=== PATIENT | female | born 1945 | race Caucasian/White ===

== ENCOUNTER 2023-09-30 22:58 | Inpatient (IN) | payer MEDICARE, SELFPAY ==
--- NOTE | ~2023-09-30 | CT_ITS ---
EXAMINATION: CT CERVICAL SPINE WITHOUT CONTRAST CLINICAL INFORMATION: Fall. Vomiting. COMPARISON: None available. TECHNIQUE: Axial images through the cervical spine without contrast. Sagittal and coronal reconstructions obtained. This CT examination was performed using dose optimization techniques as appropriate, variously including the following: *Automated exposure control *Adjustment of mA and/or kV according to patient size (this includes techniques or standardized protocols for targeted exams where dose is matched to indication/reason for exam; i.e. extremities or head) *Use of iterative reconstruction technique DLP: 337 mGy-cm FINDINGS: Head tilt to the left. Curvature of the lower cervical and upper thoracic spine to the left. Increased cervical kyphosis. Surgical hardware from ACDF at C6-C7. No fracture or dislocation. Bony ankylosis at C4-C5 and C5-C6. Fusion hardware at C6-C7. Degenerative disc space narrowing at C2-C3 C3-C4 and C7-T1. Degenerative changes at the C1 dens articulation with marked cystic changes of the dens. Prevertebral soft tissues are normal. Visualized lung apices are clear. CT/CT cervical spine wo IV con IMPRESSION: No fracture or dislocation. Postsurgical changes at C6-C7 and multilevel degenerative changes. Increased cervical kyphosis and cervical thoracic scoliosis. Fleischner guidelines were followed.
--- NOTE | ~2023-09-30 | CT_ITS ---
EXAMINATION: CT HEAD WITHOUT CONTRAST CLINICAL INFORMATION: Fall. Vomiting. COMPARISON: None available. TECHNIQUE: Contiguous axial imaging was performed from the skull base to vertex without intravenous administration of contrast. This CT examination was performed using dose optimization techniques as appropriate, variously including the following: *Automated exposure control *Adjustment of mA and/or kV according to patient size (this includes techniques or standardized protocols for targeted exams where dose is matched to indication/reason for exam; i.e. extremities or head) *Use of iterative reconstruction technique DLP: 704 mGy-cm FINDINGS: There is no evidence for an extra-axial collection. There is no evidence for intra-or extra-axial hemorrhage. The ventricles and extra-axial CSF spaces are fairly prominent suggestive of mild generalized atrophy. There is nonspecific periventricular white matter disease.. No mass, mass effect or infarct is seen. No skull fracture. Degenerative changes at the temporomandibular joints. Visualized paranasal sinuses, mastoid air cells and middle ears are clear. CT/CT head/brain wo IV con IMPRESSION: No acute findings.
[2023-09-30 23:06] VITALS: BP 90/62; PULSE 65; RESP 18; TEMP 36.4; O2SAT 97; BMI 26.3
--- NOTE | 2023-09-30 23:30 | PC.NURSE ---
pt reports taking trazadone shortly after a glass of wine. says she does not do that often. went to bathroom to vomit. felt dizzy in the bathroom, fell between wall and toilet. +LOC, unsure down time, thinks she hit her head but unsure. denies pain. c/o n/v and tiredness.
[2023-09-30 23:33] VITALS: BP 119/58; PULSE 71; RESP 18; TEMP 36.4; O2SAT 98
[2023-10-01] VITALS (14 sets, daily range): BP systolic 112–145; BP diastolic 55–86; PULSE 74–99; RESP 16–19; TEMP 36.4–36.9; O2SAT 93–96; BMI 28.4
--- NOTE | 2023-10-01 00:05 | ED.FALL ---
HPI - Fall General Chief Complaint: Fall Stated Complaint: fell, hit head, vomiting Time Seen by Provider: 09/30/23 23:41 Source: patient and family Mode of arrival: ambulatory Limitations: no limitations History of Present Illness ED Provider: Dr. Paola Leon HPI Narrative: patient comes to the emergency room accompanied by her family. Earlier today, patient has sustained a fall. Patient states that she is visiting from [place]. This is a big graduation week for the family. Patient states that earlier today, she celebrate with a coin of glass. 1/2 hour later, patient took a tablet of trazodone hoping that she would sleep well. Patient states that she got up, went to the bathroom, became drowsy and fell. Patient states that she vomited a few times. Believes she lost consciousness. Patient does not take any blood thinners. Patient states that when she woke up, there was vomit on the floor, no blood. Patient was a bit confused, no headache, no neck pain. Patient was assisted to stand up. Patient denies any pain anywhere. Patient states that she feels nauseous below was feels well. Related Data Allergies Allergy/AdvReac Type Severity Reaction Status Date / Time codeine Allergy Nausea and Verified 09/30/23 23:10 Vomiting Review of Systems Review of Systems: Constitutional : No Weight loss, No Fever, No Chills, No Night Sweats, No Fatigue, No Malaise ENT/Mouth : No Hearing loss, No Ear Pain, No Nasal Congestion, No Sinus Pain, No Hoarseness, No sore throat, No Rhinorrhea, No Swallowing Difficulty Eyes: No Eye Pain, No Swelling, No Redness, No Foreign Body, No Discharge, No Vision Changes Cardiovascular : No Chest Pain, No SOB, No Dyspnea on Exertion, No Orthopnea, No Edema, No Palpitations Respiratory : No Cough, No Sputum, No Wheezing, No Smoke Exposure, No Dyspnea Gastrointestinal : Complaining of Nausea, No Vomiting, No Diarrhea, No Constipation, No abdominal Pain, No Hematochezia, No Melena Genitourinary : no irregular bleeding, No Dysuria, No Urinary Frequency, No Hematuria, No Urinary Incontinence, No Urgency, No Flank Pain, No Urinary Flow Changes, No Hesitancy Musculoskeletal : No joint pain, No Myalgias, No Joint Swelling Skin : No Skin Lesions, No rash Neuro : No Weakness, No Numbness, No Paresthesias, No Loss of Consciousness, No Dizziness, No Headache Psych : No Anxiety/Panic, No Depression, No SI/HI/AH/VH, No Social Issues, Heme/Lymph: No Bruising, No Bleeding,No Lymphadenopathy Endocrine : No Polyuria, No Polydipsia, No Temperature Intolerance [facility], [facility] Past Medical History Medical History (Updated 10/01/23 @ 02:16 by Paola Leon MD) COPD (chronic obstructive pulmonary disease) Social History Social History Alcohol intake: current Alcohol intake frequency: 0-2 drinks per day Alcohol type: wine Smoked in Last 30 Days: No Use of substances other than those prescribed or required for medical reasons: Yes Substance Use Type: Marijuana Substance Use Frequency: Occasionally Last Used Substance: Weeks (ago) Advance Directives: Yes Advance Directives Information Provided: No Advance Directives on File: No Do you have a plan to hurt others: No Plan Physical Exam Vital Signs: Vital Signs: Last Vital Signs Temp 97.6 F 09/30/23 23:33 Pulse 81 10/01/23 00:35 Resp 18 09/30/23 23:33 BP 128/86 10/01/23 00:35 Pulse Ox 98 09/30/23 23:33 O2 Del Method Room Air 09/30/23 23:33 BMI result Body Mass Index 26.3 Const: Other: Appearance: Alert. Oriented X3. No acute distress. Eyes: Pupils equal, round and reactive to light. ENT: Pharynx normal. Neck: Normal inspection. Neck supple. No lymph nodes noted. No crepitus CVS: Normal heart rate and rhythm. Pulses normal. Normal S1 and S2 Respiratory: No respiratory distress. Breath sounds normal. No Wheezing. No rales Abdomen: Soft and nontender. No rigidity. No distention. Skin: Skin warm and dry. Normal skin color. Normal skin turgor. Extremities: No lower extremity edema. No Lacerations. No Rash Neuro: Oriented X 3. No motor deficit. No sensory deficit. Moving all extremities. No slurred speech. CN 2 through 12 grossly intact Psych: calm, cooperative, normal affect Course Course Course Narrative: - patient's labs pending - CT scan pending - I was informed by the patient's nurse that the patient had been vomiting, blood pressure was in the low 90s, patient received a L of normal saline. Medications Administered Discontinued Medications Generic Name Dose Route Start Last Admin Trade Name Nazanin PRN Reason Stop Dose Admin Sodium Chloride 1,000 mls @ 999 mls/hr 10/01/23 00:03 10/01/23 00:33 Ns IVCONT 10/01/23 01:03 999 mls/hr .Q1H1M ONE Administration Ondansetron HCl 4 mg 10/01/23 00:03 10/01/23 00:33 Ondansetron Hcl 4 Mg/2 Ml Vial IVPUSH 10/01/23 00:04 4 mg ONCE ONE Administration Medical Decision Making Medical Decision Making [facility] Narrative: my interpretation of CT scan: No obvious intracranial abnormality or bleeding. - patient's white blood cell count 11.8, likely secondary to reactive leukocytosis. Patient's chemistry shows a sodium of 127. I discussed this level with the patient, patient states that she has never been told that her sodium is low. - I discussed the patient with Dr. Wilson. There are several reasons why patient may be hyponatremic including some of her Home medications, vomiting? - sodium osmolality tests pending. - Patient is awake, alert and oriented x3. Patient's blood pressure 128/86, heart rate 81, oxygen saturation 98% on room air. - patient being admitted Differential Diagnosis Differential Diagnoses: The differential diagnosis associated with the presentation includes ( as above) Admission/Observation Consideration of admission/observation: Escalation of care including admission/observation considered Consult Healthcare Provider Management of the patient was discussed with: Hospitalist Lab Data [facility] Lab Attestation statement: I reviewed the patient's lab results. 10/01/23 00:24 10/01/23 00:24 Labs: Lab Results 10/01/23 10/01/23 Range/Units 00:24 00:24 WBC 11.8 H (4.8-10.8) X10*3/uL RBC 4.03 L (4.20-5.50) X10*6/uL Hgb 13.0 (12.0-16.0) g/dl Hct 35.9 L (37.0-47.0) % MCV 89.1 (80.0-98.0) fL MCH 32.3 (27.0-33.0) pg MCHC 36.2 H (31.0-35.0) g/dl RDW 12.5 (11.0-16.0) % Plt Count 324 (160-400) X10*3/uL MPV 9.4 (9.4-12.3) fL Immature Gran % (Auto) 0.5 H (0.0-0.4) % Neut % (Auto) 71.7 (45-73) % Lymph % (Auto) 15.8 L (20-40) % [place] % (Auto) 9.1 (2-11) % Eos % (Auto) 2.2 (0-4) % Baso % (Auto) 0.7 (0-2) % Lymph # (Auto) 1.9 (1.2-4.9) X10*3/uL [place] # (Auto) 1.1 (0.1-1.2) X10*3/uL Eos # (Auto) 0.3 (0.0-0.4) X10*3/uL Baso # (Auto) 0.1 (0.0-0.2) X10*3/uL Abs Immat Gran (auto) 0.06 H (0.00-0.03) X10*3/uL Absolute Neuts (auto) 8.4 H (2.0-8.3) x10*3/uL Absolute Nucleated RBC 0.000 (0.0-0.012) X10*3/uL Nucleated RBC % (auto) 0.0 (0.0-0.2) /100WBC Sodium 127 L (135-145) mmol/L Potassium 3.7 (3.3-5.1) mmol/L Chloride 93 L (96-108) mmol/L Carbon Dioxide 22 (22-29) mmol/L Anion Gap 16 (12-20) BUN 6 L (9-16) mg/dL Creatinine 0.62 (0.5-1.4) mg/dL Estim Creat Clear Calc 63.1 Estimated GFR > 60 Random Glucose 109 (60-115) mg/dL Calcium 9.2 (8.4-10.2) mg/dL Total Bilirubin 0.4 (0.0-1.0) mg/dL AST 33 H (5-31) U/L ALT 15 (0-31) U/L Alkaline Phosphatase 77 (39-117) U/L Troponin I High Sens < 2.7 (<3.5-17.0) ng/L Total Protein 7.5 (6.5-8.0) g/dL Albumin 4.0 (3.5-5.0) g/dL Ethyl Alcohol < 10 Cancelled mg/dL Independent Interpretation I performed an independent interpretation of an: CT Scan Radiology Impression Discussion of test interpretation with radiology: I have reviewed the radiologist's reading. Radiologist Impression: FINDINGS: There is no evidence for an extra-axial collection. There is no evidence for intra-or extra-axial hemorrhage. The ventricles and extra-axial CSF spaces are fairly prominent suggestive of mild generalized atrophy. There is nonspecific periventricular white matter disease.. No mass, mass effect or infarct is seen. No skull fracture. Degenerative changes at the temporomandibular joints. Visualized paranasal sinuses, mastoid air cells and middle ears are clear. CT/CT head/brain wo IV con IMPRESSION: No acute findings. IMPRESSION: No fracture or dislocation. Postsurgical changes at C6-C7 and multilevel degenerative changes. Increased cervical kyphosis and cervical thoracic scoliosis. Fleischner guidelines were followed Independent Historian Clinical information obtained from an independent historian. History obtained from or confirmed by: Other ( family) Critical Care Time Critical Care Time Critical Care Time: Yes Total Critical Care Time: 60 Attestation: I have personally provided critical care time. Time includes review of lab data, radiology results, discussion with consultants, and monitoring for potential decompensation. Intervention performed as documented. Discharge Plan Discharge Clinical Impression: Dizziness, Acute hyponatremia, Nausea & vomiting Patient Disposition: Admitted As Inpatient Print Language: Mexican
[2023-10-01 00:28] LABS: MANUAL DIFF FLAG NO
[2023-10-01 00:33] LABS: Basophils Absolute Auto 0.1 X10*3/uL (0.0-0.2); Basophils Percent Auto 0.7 % (0-2); Eosinophils Absolute Auto 0.3 X10*3/uL (0.0-0.4); Eosinophils Percent Auto 2.2 % (0-4); Hematocrit 35.9 % (37.0-47.0); Imm Gran Abs Auto 0.06 X10*3/uL (0.00-0.03); Imm Gran Pct Auto 0.5 % (0.0-0.4); Lymphocytes Absolute Auto 1.9 X10*3/uL (1.2-4.9); Lymphocytes Percent Auto 15.8 % (20-40); Mean Corpuscular HGB Conc 36.2 g/dl (31.0-35.0); Mean Corpuscular Hemoglobin 32.3 pg (27.0-33.0); Mean Corpuscular Volume 89.1 fL (80.0-98.0); Mean Platelet Volume 9.4 fL (9.4-12.3); Monocytes Absolute Auto 1.1 X10*3/uL (0.1-1.2); Monocytes Percent Auto 9.1 % (2-11); Neutrophils Absolute Auto 8.4 x10*3/uL (2.0-8.3); Neutrophils Percent Auto 71.7 % (45-73); Platelet Count 324 X10*3/uL (160-400); Red Blood Count 4.03 X10*6/uL (4.20-5.50); Red Cell Distribution Width 12.5 % (11.0-16.0); White Blood Count 11.8 X10*3/uL (4.8-10.8)
[2023-10-01] MEDS: 0.9 % Sodium Chloride 1,000 ML 999 ML IVCONT (00:33)
[2023-10-01] MEDS: ondansetron HCL 4 MG/2 ML VIAL IVPUSH (00:33)
[2023-10-01 00:48] LABS: Alanine Aminotransferase 15 U/L (0-31); Alkaline Phosphatase 77 U/L (39-117); Anion Gap 16 (12-20); Aspartate Amino Transferase 33 U/L (5-31); Bilirubin Total 0.4 mg/dL (0.0-1.0); Blood Urea Nitrogen 6 mg/dL (9-16); Calcium 9.2 mg/dL (8.4-10.2); Carbon Dioxide 22 mmol/L (22-29); Chloride 93 mmol/L (96-108); Creatinine Clr Calc Pharmacy 63.1; Estimated Glomerular Filt Rate > 60; Ethanol < 10 mg/dL; Glucose Random 109 mg/dL (60-115); Potassium 3.7 mmol/L (3.3-5.1); Sodium 127 mmol/L (135-145); Total Protein 7.5 g/dL (6.5-8.0)
[2023-10-01 01:02] LABS: Troponin-I High Sensitivity < 2.7 ng/L (<3.5-17.0)
--- NOTE | 2023-10-01 02:25 | PM.IMHP ---
History of Present Illness Date of Service: 10/01/23 Attending physician on admission: Debra Oliveira Chief Complaint: Fall, nausea and vomiting Autumn Burleson is a 74 years old woman with past medical history significant for essential hypertension and hyperlipidemia was brought to the emergency department after she sustained a fall tonight. She stated that last night around 20:00 she drank a glass of wine in around an hour later she took trazodone 100 mg p.o. but she was unable to sleep. Minutes later she started to experience nausea and dizziness. While walking to the bathroom she fall sustaining head trauma. She does not remember losing consciousness and she was found by her who told her that she was a little bit incontinent of stools only. No seizure activity was noted by . Patient denied any headache, acute visual disturbances, fever, chills or palpitations. She also denied any focal weakness. Denied any acute cardiopulmonary or other gastrointestinal symptoms. She denied tobacco smoking and denied marijuana use. She drinks a glass of wine very occasionally. One of the medications she is uses for hypertension is hydrochlorothiazide. Patient did not report history of low-sodium issues. In the ED, she was found to have mild leukocytosis of 11.8. Hemoglobin and platelets are normal. Sodium is 127 and chloride 93. Other electrolytes are normal. Troponin is < 2.7 and AST slightly elevated at 33. Bilirubin, AST and alk-phos are normal. Ethanol level < 10. Urine osmolality, serum osmolality urine sodium are not available Head and C-spine CT scan showed no acute findings. ED tx: NS 1 L bolus and Zofran 4 mg IV Review of Systems Review of Systems: All 12 systems were reviewed and normal except as noted in HPI. [facility] Medical History (Updated 10/01/23 @ 05:24 by Debra Oliveira MD) COPD (chronic obstructive pulmonary disease) Social History Alcohol intake: current Alcohol intake frequency: 0-2 drinks per day Alcohol type: wine Patient Tobacco Use Status: Former Tobacco user Substance Use Type: Marijuana Meds Allergies Allergy/AdvReac Type Severity Reaction Status Date / Time codeine Allergy Nausea and Verified 09/30/23 23:10 Vomiting Home Medications ?Medication ?Instructions ?Recorded ?Confirmed ?Last Taken ?Type amlodipine 2.5 mg tablet 2.5 mg PO DAILY 10/01/23 10/01/23 Unknown History atorvastatin 10 mg tablet 10 mg PO DAILY 10/01/23 10/01/23 Unknown History hydrochlorothiazide 12.5 mg tablet 12.5 mg PO DAILY 10/01/23 10/01/23 Unknown History ibuprofen 800 mg tablet 800 mg PO Q8H PRN pain 10/01/23 10/01/23 Unknown History levothyroxine 88 mcg tablet 88 mcg PO DAILY 10/01/23 10/01/23 Unknown History lorazepam 0.5 mg tablet 0.5 mg PO DAILY 10/01/23 10/01/23 Unknown History losartan 100 mg tablet 100 mg PO DAILY 10/01/23 10/01/23 Unknown History potassium chloride 10 mEq 10 meq PO DAILY 10/01/23 10/01/23 Unknown History tablet,extended release trazodone 100 mg tablet 100 mg PO BEDTIME 10/01/23 10/01/23 Unknown History Physical Exam Vital Signs and Narrative: Vital Signs: Last Vital Signs Temp 97.6 F 09/30/23 23:33 Pulse 81 10/01/23 00:35 Resp 18 09/30/23 23:33 BP 128/86 10/01/23 00:35 Pulse Ox 98 09/30/23 23:33 O2 Del Method Room Air 09/30/23 23:33 BMI result Body Mass Index 26.3 Constitutional - Awake and Alert, No apparent distress HEENT - Pupils equally round, EOMI Heart - S1S2, RRR. No murmurs. Respiratory - Normal lung expansion, Normal respiratory effort, No respiratory distress, CTA bilaterally Gastrointestinal - NT / ND; +BS; No rebound or guarding Extremities - no calf tenderness bilaterally, no swelling Musculoskeletal - Normal inspection, normal ROM Skin - Warm/Dry Neurological - Alert & oriented x3. No focal weakness. Normal speech. Psychological - Appropriate affect Results Labs 10/01/23 00:24 10/01/23 03:34 Labs: Laboratory Results - last 24 hr 10/01/23 10/01/23 00:24 00:24 MCV 89.1 MCH 32.3 MCHC 36.2 H RDW 12.5 Plt Count 324 MPV 9.4 Immature Gran % (Auto) 0.5 H Neut % (Auto) 71.7 Lymph % (Auto) 15.8 L [place] % (Auto) 9.1 Eos % (Auto) 2.2 Baso % (Auto) 0.7 Lymph # (Auto) 1.9 [place] # (Auto) 1.1 Eos # (Auto) 0.3 Baso # (Auto) 0.1 Abs Immat Gran (auto) 0.06 H Absolute Neuts (auto) 8.4 H Absolute Nucleated RBC 0.000 Nucleated RBC % (auto) 0.0 Anion Gap 16 Estim Creat Clear Calc 63.1 Estimated GFR > 60 Random Glucose 109 Calcium 9.2 Total Bilirubin 0.4 AST 33 H ALT 15 Alkaline Phosphatase 77 Troponin I High Sens < 2.7 Total Protein 7.5 Albumin 4.0 Ethyl Alcohol < 10 Cancelled Imaging Radiologist's Impressions: Impressions Cervical Spine CT 09/30/23 23:29 IMPRESSION: No fracture or dislocation. Postsurgical changes at C6-C7 and multilevel degenerative changes. Increased cervical kyphosis and cervical thoracic scoliosis. Fleischner guidelines were followed. Head CT 09/30/23 23:29 IMPRESSION: No acute findings. Assessment and Plan (1) Nausea & vomiting: Qualifiers: Vomiting type: unspecified Qualified Code(s): R11.2 - Nausea with vomiting, unspecified Status: Acute (2) Hyponatremia: Status: Acute Plan Autumn Burleson is a 74 y/o woman admitted with: Hyponatremia, moderate, unknown if acute or chronic. Patient is asymptomatic. Patient is hypovolemic. Likely multifactorial: HCTZ induced in combination with recent ingestion alcohol and trazodone intake simultaneously. Hold HCTZ and trazodone. Na+ osm is 291, urine Na+ 34. Serum osm is still pending. Received 1 L bolus of NS in ED. Continue IVFs. Monitor Na+ every 4 hr. Check TSH. Nausea and vomiting possible secondary to use of trazodone and alcohol and/or due to above. Antiemetic therapy as needed. Patient was advised to avoid taking sedatives such as trazodone and lorazepam with alcohol. s/p Fall. Likely secondary to orthostatic hypotension secondary to volume depletion. Encourage oral hydration. Fall precautions. Monitor orthostatic vital signs. Patient was advised to avoid getting out of the bed without assistance. Syncope likely secondary to orthostasis resulting head trauma. Received IVFs. Head CT scan is negative. Fall precautions Essential hypertension. HCTZ on hold due to above. Continue losartan. Hyperlipidemia. Continue statin. Hypothyroidism. Continue levothyroxine. Code status: Full DVT prophylaxis: SCDs Patient will need hospitalization for at least 2 midnights for hyponatremia management and treatment. She will need IV fluids close monitoring of vital signs and sodium level. Quality Stroke Does the patient have a stroke diagnosis?: No VTE Prior VTE?: No VTE Risk Level:: Medical - moderate - high VTE Device Contraindication: N/A - Device Ordered VTE Drug Contraindication: Treatment Not Indicated
[2023-10-01 03:51] LABS: Sodium 128 mmol/L (135-145)
--- NOTE | 2023-10-01 04:22 | PC.NURSE ---
pt resting comfortably with family at bedside. Med Rec completed, pt aware of everything she takes
[2023-10-01 04:25] LABS: Appearance Urine Clear; Color Urine Yellow; Glucose Urine UA Negative (Negative); Leukocyte Esterase Urine Moderate (2+) (Negative); Nitrite Urine Negative (Negative); UMIC TRIGGER UACC YES; Urine Blood Negative (Negative); Urine Ketones 15 mg/dL (Negative); Urine Protein Negative (Neg-Trace)
[2023-10-01 04:33] LABS: Osmolality Urine 291 mosm/kg (373-1093)
[2023-10-01 04:35] LABS: Bacteria Urine None Seen (None Seen); RBC Urine 0-2 /HPF (0-2); Squamous Epithelial Cell Urine 0-2 /HPF (0-2); UACC Culture Trigger YES; WBC Urine 21-50 /HPF (0-5)
[2023-10-01 04:35] LABS: Thyroid Stimulating Hormone 0.62 uIU/mL (0.32-4.0)
[2023-10-01] MEDS: 0.9 % Sodium Chloride 1,000 ML 80 ML IVCONT (05:28)
[2023-10-01] MEDS: Levothyroxine Sodium 88 MCG TABLET PO (06:30)
[2023-10-01 07:41] LABS: Sodium 128 mmol/L (135-145)
[2023-10-01 08:00] LABS: Osmolality, Serum 264 mosm/kg (281-305)
--- NOTE | 2023-10-01 09:41 | PHA.MEDREC ---
Pharmacy Consult ? Medication Reconciliation Pharmacy has completed the medication reconciliation. patient states she is taking combivent prn and anoro ellipta daily.
[2023-10-01] MEDS: Atorvastatin Calcium 10 MG TABLET PO (10:15)
[2023-10-01] MEDS: Potassium Chloride ER 10 MEQ TABLET.ER PO (10:15)
--- NOTE | 2023-10-01 11:32 | MHC.CM.PN ---
IMM 10/01/23 Female 78 DX Hyponatremia She lives in [place] with her spouse. She is independent with all functional mobility. She is in [place] for 3 of her grandchildren's graduations. DP Home self care. Her spouse will provide transportation home at discharge. PCP [facility] Vazquez [place]. A task has been sent to update EMR. A copy of her HCP has been requested.
[2023-10-01 11:33] LABS: Sodium 131 mmol/L (135-145)
--- NOTE | 2023-10-01 14:11 | P.EN_ITS ---
Event Note Date of Service: 10/01/23 Event Note: This patient is seen and examined by hospitalist team this morning,seen and exmained again Patient seems to be improving denies any vomiting or dizziness. Has some nausea Orthosis in negative Physical exam : similar to h&P. assessment and plan coordinated in APCs note, Agree with the plan in addition: Nausea vomiting , dizziness thought to be related to trazodone/alcohol use-which seems to be improved significantly, patient still feels generalized weak and bl ood pressure is borderline. Hyponatremia-sodium still in 128 range will continue to monitor, still fluid, serum osmolarity and urine osmolality both low, urine sodium 34. Encouraged for p.o. intake, monitor electrolytes closely. pt eval for generalised weak - Pt eval. Time Spent With Patient Time: Total time managing care of this patient today ____ minutes.
[2023-10-01 20:12] LABS: Sodium 133 mmol/L (135-145)
[2023-10-02] VITALS: BP 122/65; PULSE 84; RESP 20; TEMP 36.8; O2SAT 95
[2023-10-02 03:57] VITALS: BP 123/61; PULSE 70; RESP 20; TEMP 36.1; O2SAT 95
[2023-10-02] MEDS: Levothyroxine Sodium 88 MCG TABLET PO (05:06)
[2023-10-02] MEDS: 0.9 % Sodium Chloride Flush 3 ML SYRINGE IVFLUSH ×2 (05:07→08:35)
[2023-10-02 07:06] LABS: Anion Gap 10 (12-20); Blood Urea Nitrogen 4 mg/dL (9-16); Calcium 9.3 mg/dL (8.4-10.2); Carbon Dioxide 25 mmol/L (22-29); Chloride 102 mmol/L (96-108); Creatinine Clr Calc Pharmacy 71.1; Estimated Glomerular Filt Rate > 60; Glucose Random 117 mg/dL (60-115); Potassium 3.8 mmol/L (3.3-5.1); Sodium 133 mmol/L (135-145)
[2023-10-02 08:00] VITALS: BP 130/60; PULSE 72; RESP 20; TEMP 36.6; O2SAT 94
[2023-10-02 08:05] VITALS: BP 130/67; PULSE 73
[2023-10-02 08:10] VITALS: BP 152/70; PULSE 73
[2023-10-02] MEDS: Losartan Potassium 50 MG TABLET 100 MG PO (08:35)
[2023-10-02] MEDS: Atorvastatin Calcium 10 MG TABLET PO (08:35)
[2023-10-02] MEDS: Cholecalciferol (Vitamin D3) 25 MCG TABLET PO (08:35)
[2023-10-02] MEDS: Potassium Chloride ER 10 MEQ TABLET.ER PO (08:35)
[2023-10-02] MEDS: amLODIPine Besylate 2.5 MG TABLET PO (10:41)
[2023-10-02 11:00] VITALS: BP 152/70; PULSE 73
--- NOTE | 2023-10-02 11:25 | PM.DS ---
DS: Providers Provider Date of Service: 10/02/23 Date of admission: 10/01/23 02:24 Date of discharge: 10/02/23 Primary care physician: Unknown Physician Attending physician on discharge: Priti Cruz Discharging clinician: Priti Cruz DS: Diagnosis Discharge Diagnosis (1) Nausea & vomiting: Status: Acute (2) Hyponatremia: Status: Acute DS: Summary Hospital Course Hospital Course: 74 years old woman with past medical history significant for essential hypertension and hyperlipidemia was brought to the emergency department after she sustained a fall tonight. She stated that last night around 20:00 she drank a glass of wine in around an hour later she took trazodone 100 mg p.o. but she was unable to sleep. Minutes later she started to experience nausea and dizziness. While walking to the bathroom she fall sustaining head trauma. She does not remember losing consciousness and she was found by her who told her that she was a little bit incontinent of stools only. No seizure activity was noted by . Patient denied any headache, acute visual disturbances, fever, chills or palpitations. She also denied any focal weakness. Denied any acute cardiopulmonary or other gastrointestinal symptoms. She denied tobacco smoking and denied marijuana use. She drinks a glass of wine very occasionally. One of the medications she is uses for hypertension is hydrochlorothiazide. Patient did not report history of low-sodium issues. In the ED, she was found to have mild leukocytosis of 11.8. Hemoglobin and platelets are normal. Sodium is 127 and chloride 93. Other electrolytes are normal. Troponin is < 2.7 and AST slightly elevated at 33. Bilirubin, AST and alk-phos are normal. Ethanol level < 10. Urine osmolality, serum osmolality urine sodium are not available Head and C-spine CT scan showed no acute findings. ED tx: NS 1 L bolus and Zofran 4 mg IV. Hospital course: Patient came to the hospital because has nausea vomiting, fall after taking trazodone and wine, also had blood pressure fluctuation possibly also contributed, poor oral intake, also patient fall due to above- patient received fluid, trazodone discontinued, also advised strongly to not take wine with trazodone or lorazepam or any sedatives. Patient found to have mild leukocytosis, hyponatremia with sodium level of 127, CT head and CT cervical spine negative. Patient likely had acute hyponatremia: Hydrochlorothiazide discontinued and sodium monitored which improved. Monitor BMP in 1-2 week and further management out patiently . Hypertension: Fluctuating blood pressure: Hydrochlorothiazide discontinued, continue amlodipine and losartan for now, if blood pressure stays persistently in 140s then may need to adjust amlodipine dosing. Patient has asymptomatic pyuria, no bacteriuria: Patient is asymptomatic currently will defer antibiotic, urine culture mixed justin . plan: stopped trazodone , hold lorazepam for 5 days (avoid alcohol use). Encouraged for hydration. Hydrochlorothiazide stopped Due to hyponatremia, monitor BMP outpatient. blood pressure stays persistently in 140s then may need to adjust amlodipine dosing. Above management discussed with the patient in detail length she understand and in agreement with the above plan, time spent 40 minute Time Attestation Total time managing care of this patient today: 40 mintues. Discharge Coordination Time (in mins): 40 min Quality: Safe Use of Opioids Does Pt have an Active Cancer Diagnosis on the Problem List?: No Quality: Stroke Does the patient have a stroke diagnosis?: No Physical Exam Vital Signs: Vital Signs: Last Vital Signs Temp 97.8 F 10/02/23 08:00 Pulse 73 10/02/23 11:00 Resp 20 10/02/23 08:00 BP 152/70 H 10/02/23 11:00 Pulse Ox 94 10/02/23 08:00 O2 Del Method Room Air 10/02/23 08:00 BMI result Body Mass Index 28.4 Appearance: Alert.? Oriented X3.? cvs: rrr, [id number] . res: clear to auscultation ,no rhonchii or wheezing abd: no rebound or guarding ,nt, bs present. ext pulses present , no cyanosis . neuro: axo3 , nonfocal. DS: Data Data Completed and Pending Labs on day of discharge: Laboratory Results - last 24 hr 10/01/23 10/01/23 10/02/23 11:09 19:42 06:39 Hold Purple Top SEE NOTE Sodium 131 L 133 L 133 L Potassium 3.8 Chloride 102 Carbon Dioxide 25 Anion Gap 10 L BUN 4 L Creatinine 0.57 Estim Creat Clear Calc 71.1 Estimated GFR > 60 Random Glucose 117 H Calcium 9.3 Imaging Chest x-ray: Radiologist's impression: ITS Impressions Cervical Spine CT 09/30/23 23:29 IMPRESSION: No fracture or dislocation. Postsurgical changes at C6-C7 and multilevel degenerative changes. Increased cervical kyphosis and cervical thoracic scoliosis. Fleischner guidelines were followed. Head CT 09/30/23 23:29 IMPRESSION: No acute findings. Discharge Plan Discharge Anticipated Discharge Date/Time: 10/02/23 10:59 Patient Disposition: Home, Self-Care Discharge Diagnosis: acute hyponatremia, fall, htn,nausea /vomiting Referrals: Physician,Unknown J [Primary Care Provider] - 1 Week Discharge Medications: Continued atorvastatin 10 mg tablet 10 mg PO DAILY ibuprofen 800 mg tablet 800 mg PO Q8H PRN (Reason: pain) amlodipine 2.5 mg tablet 2.5 mg PO DAILY potassium chloride 10 mEq tablet extended release 10 meq PO DAILY levothyroxine 88 mcg tablet 88 mcg PO DAILY@0600 losartan 100 mg tablet 100 mg PO DAILY Anoro Ellipta 62.5-25 mcg/actuation blister with device 1 ea INHALATION DAILY cholecalciferol (vitamin D3) [Vitamin D3] 25 mcg (1,000 unit) Tablet 25 mcg PO DAILY Combivent Respimat 20-100 mcg/actuation mist 1 puff INHALATION QID PRN (Reason: Shortness Of Breath Or Wheezing) Held lorazepam 0.5 mg tablet 0.5 mg PO DAILY PRN (Reason: Anxiety) Hold Instructions: Resume on 10/07/23. Discontinued hydrochlorothiazide 12.5 mg tablet 12.5 mg PO DAILY trazodone 100 mg tablet 100 mg PO BEDTIME PRN (Reason: Sleep) Discharge Orders: Discharge Order (Routine); Ordered 10/02/23 Ordered By: Priti Cruz Diet: Advance to usual diet Activity on Discharge: As tolerated Stand Alone Forms: Patient Portal Discharge page Print Language: Macedonian Care Plan Goals: Patient came to the hospital because has nausea vomiting after taking trazodone and wine, also had blood pressure fluctuation possibly also contributed, poor oral intake, also patient fall due to above- patient received fluid, trazodone discontinued, also advised strongly to not take wine with trazodone or lorazepam or any sedatives. Patient likely had acute hyponatremia: Hydrochlorothiazide discontinued and sodium monitored which improved. Monitor BMP in 1-2 week and further management out patiently . Hypertension: Fluctuating blood pressure: Hydrochlorothiazide discontinued, continue amlodipine and losartan for now, if blood pressure stays persistently in 140s then may need to adjust amlodipine dosing. Above management discussed with the patient in detail length she understand and in agreement with the above plan, time spent 40 minute. Health Concerns: As above. Plan of Treatment: As above. Assessment: As above.
--- NOTE | 2023-10-02 11:41 | MHC.CM.PN ---
Pt is medically cleared for discharge home self-care, pts to transport her home.
== END 2023-10-02 12:48 | disposition home or self-care (01) | DRG 641 ==
LOC: HO.ED 10-01 02:16 → HO.EDOVER 10-01 02:27 → HO.IMC 10-01 05:10
PROVIDERS: Admitting Provider Internal Medicine; Emergency Provider Emergency Medicine; Visit Provider Internal Medicine
DX: E87.1 Hypo-osmolality and hyponatremia (principal); I95.1 Orthostatic hypotension; E78.5 Hyperlipidemia, unspecified; E03.9 Hypothyroidism, unspecified; I10 Essential (primary) hypertension; W19.XXXA Unspecified fall, initial encounter; Z79.890 Hormone replacement therapy; Z79.899 Other long term (current) drug therapy
CPT/HCPCS: 36415; 70450; 72125; 80048; 80053; 80307; 81001; 83930; 83935; 84295; 84300; 84443; 84484; 85025; 87086; 97161; 99285; J2405

== ENCOUNTER → 2023-10-01 02:24 | Outpatient (BNV) | payer MEDICARE, SELFPAY | PROVIDERS: Admitting Provider Internal Medicine; Emergency Provider Emergency Medicine; Visit Provider Internal Medicine | DX: R11.2 Nausea with vomiting, unspecified (principal); E87.1 Hypo-osmolality and hyponatremia | CPT/HCPCS: 99222; 99239; 99499 ==

== ENCOUNTER 2025-03-08 09:03 | Outpatient (AMB) | payer MEDICARE, SELFPAY ==
[2025-03-08 09:09] VITALS: BP 138/72; PULSE 84; O2SAT 79; BMI 26.7
--- NOTE | 2025-03-08 09:09 | A.OFFVIS_ITS ---
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 The patient is a 79 year woman who recently moved from [place] to [place]. Now she is getting situated. She does have a history of COPD and also pulmonary fibrosis. The patient has been on Anoro inhaler. In addition to the Combivent. She developed significant shortness of breath with activity. She has been having issues with her swallow. She is also having issues with chronic bronchitis moderate severity. Difficult to expectorate. In addition to that she had been having significant neck pain when she did have surgery at some point in the past. She did undergo a CT scan of the neck which I personally reviewed here actually at [place]. The lung windows on the CT scan of the neck demonstrates some emphysema. In addition to that the trachea appeared to have near-complete collapse suggesting significant localized proximal tracheomalacia. Likely contributing to her chronic bronchitis and chronic cough. During the visit we did go for brief walking oximetry the patient did desaturate down to 87% with activity. She was visibly dyspneic with a dyspnea score of 6/10. The patient is placed on a portable oxygen concentrator at 2 L and then up to 3 L to maintain a pulse ox of 93% with activity. Will go ahead and set her up with oxygen at this time. She will get is going to continue inhaler therapy. And will going to do additional testing including PFTs CT scan of the chest and also a barium swallow. Also of interest the patient does have a sister with pulmonary fibrosis I do not have the details. [facility] Medical History (Updated 03/08/25 @ 17:36 by Matt Wells MD) Tracheomalacia Dysphagia Pulmonary fibrosis Chronic respiratory failure with hypoxia COPD (chronic obstructive pulmonary disease) Social History Household Members: Spouse Housing: House Do you presently have visiting nurse or other home services: No Alcohol intake: current Alcohol intake frequency: 0-2 drinks per day Alcohol type: wine Patient Tobacco Use Status: Former Tobacco user Substance Use Type: Marijuana Advance Directives Date on File: 10/01/23 service: No Review of Systems Const Denies fever(s) Eyes Reports no additional complaints ENT Reports dysphagia and Reports nasal congestion Card Denies chest pain and Reports dyspnea on exertion Resp Reports chest congestion, Reports cough, Reports dyspnea on exertion and Denies wheezing GI Reports dysphagia Musc Reports myalgias Skin/Breast Denies rash Neuro Reports no additional complaints Endo Reports no additional complaints Cy/Lymph Reports no additional complaints Aller/Immun Denies wheezing Physical Exam Vital Signs: Last Vital Signs Pulse 84 03/08/25 09:09 BP 138/72 03/08/25 09:09 Pulse Ox 79 L 03/08/25 09:09 Oxygen Delivery Method Room Air 03/08/25 09:09 BMI result Body Mass Index 26.7 Const General: comfortable HEENT Head: Yes normocephalic Neck Neck: Yes supple Chest Chest palpation & inspection: normal inspection of the chest Resp Effort & Inspection: normal respiratory effort Auscultation: diminished lung sounds Cardio Heart sounds: S1 normal heart sound present and S2 normal heart sound present GI Palpation (GI): Soft to palpation Skin General skin exam: no rashes or lesions noted Extrem General: Yes no clubbing, cyanosis or edema Results Reviewed Results Reviewed: Assessment & Plan Assessment & Plan (1) COPD (chronic obstructive pulmonary disease): Code(s): J44.9 - Chronic obstructive pulmonary disease, unspecified Category: Medical Qualifiers: COPD type: emphysema Emphysema type: centrilobular Qualified Code(s): J43.2 - Centrilobular emphysema (2) Chronic respiratory failure with hypoxia: Code(s): J96.11 - Chronic respiratory failure with hypoxia Category: Medical (3) Pulmonary fibrosis: Code(s): J84.10 - Pulmonary fibrosis, unspecified Category: Medical (4) Dysphagia: Code(s): R13.10 - Dysphagia, unspecified Category: Medical Qualifiers: Dysphagia type: unspecified Qualified Code(s): R13.10 - Dysphagia, unspecified (5) Tracheomalacia: Code(s): J39.8 - Other specified diseases of upper respiratory tract Category: Medical Plan continue Anoro ANMOL as needed start Oxygen 3L/pulse with activity Overnight oximetry on RA CT chest PFTs Barium swallow consider bloodwork start acapella valve for CPT F/U 2-3 months Orders: Orders 2 Overnight Pulse Oximetry Today J44.9 - Chronic obstructive pulmonary disease, unspecified, J84.10 - Pulmonary fibrosis, unspecified, J96.11 - Chronic respiratory failure with hypoxia, R13.10 - Dysphagia, unspecified PFT pulmonary function test Today J44.9 - Chronic obstructive pulmonary disease, unspecified, J84.10 - Pulmonary fibrosis, unspecified, J96.11 - Chronic respiratory failure with hypoxia, R13.10 - Dysphagia, unspecified [place] barium swallow Today J44.9 - Chronic obstructive pulmonary disease, unspecified, J84.10 - Pulmonary fibrosis, unspecified, J96.11 - Chronic respiratory failure with hypoxia, K21.9 - Gastro-esophageal reflux disease without esophagitis, R13.10 - Dysphagia, unspecified CT chest wo IV con Today J44.9 - Chronic obstructive pulmonary disease, unspecified, J84.10 - Pulmonary fibrosis, unspecified, J96.11 - Chronic respiratory failure with hypoxia, R13.10 - Dysphagia, unspecified Coding Level of Care Code New Pt Level 5 (75063) Diagnoses Centrilobular emphysema J43.2 COPD type: emphysema Emphysema type: centrilobular Chronic respiratory failure with hypoxia J96.11 Pulmonary fibrosis J84.10 Dysphagia, unspecified type R13.10 Dysphagia type: unspecified Tracheomalacia J39.8 Time Spent (min) 60
--- OUTSIDE RECORDS SUMMARY | 2025-03-08 09:39 | XMS_ITS | Encounter Summary ---
Author Organization [facility] Address [address] [place] [address] Care Team Providers Care Coil Winder Strap Name Role Phone Reagan Vazquez MD Unavailable [phone] Reagan Vazquez MD Primary Care Provider [phone] Bessy Stephens Unavailable Unavailabl e Reagan Vazquez MD Unavailable Karen Richardson RN Unavailable Unavaila ble Reagan Vazquez MD Unavailable Reagan Vazquez MD Unavailable Reagan Vazquez MD Unavailable Lian Fuller Unavailable Unavailabl e Source Comments Please be aware that You and/or your organization are solely responsible for the use, security, privacy, and any decisions made with any information you receive from [email or web address] Reason for Visit * Reason Onset Date Comments Med Refill Dermatology Appt 01/29/2023 Provided [facility] appointment March 10 @ 10:15 AM Encounter Details Date Type Department Care Team (Late st Contact Info) Description 01/29/2023 Refill [facility] [place] [address] [address] Reagan Vazquez MD [address] [place] [address] Anxiety Social History Tobacco Use Types Packs/Day Years Used Date Smoking Tobacco: Former Cigarettes 0.5 10 0 07/10/1966 - 06/17/1976 Passive Smoke Exposure: Past Smokeless Tobacco: Never Alcohol Use Standard Drinks/Week Comments Yes 4 (1 standard drink = 0.6 oz pur e alcohol) Humiliation, Afraid, Rape, and Kick questionnair e Answer Date Recorded Within the last year, have y ou been afraid of your partner or ex-partner? No 01/09/2023 Within the last year, have y ou been humiliated or emotionally abused in other ways by your partner or ex-partner? No Within the last year, have y ou been kicked, hit, slapped, or otherwise physically hurt by your partner or ex-partner? No 01/09/2023 Within the last year, have y ou been raped or forced to have any kind of sexual activity by your partner or ex-partner? No 01/09/2023 Social Connection and Isolation Panel Answer Date Recorded In a typical week, how many times do you talk on the phone with family, friends, or neighbors? More than three times a week 01/09/2023 How often do you get togethe r with friends or relatives? More than three times a week 01/09/2023 How often do you attend [facility] or cheondoism services? More than 4 times per year 01/09/2023 Do you belong to any clubs o r organizations such as hoahaoism groups, unions, fraternal or athletic groups, or school groups? No 01/09/2023 How often do you attend meet ings of the clubs or organizations you belong to? Never 01/09/2023 Are you , , di vorced, , never , or living with a partner? 01/09/2023 AUDIT-C Answer Date Recorded Q1: How often do you have a drink containing alc ohol? Monthly or less 01/09/2023 Q2: How many drinks containi ng alcohol do you have on a typical day when you are drinking? 1 or 2 01/09/2023 Q3: How often do you have si x or more drinks on one occasion? Less than monthly 01/09/2023 Overall Financial Resource Strain (CARDIA) Answe r Date Recorded How hard is it for you to pa y for the very basics like food, housing, medical care, and heating? Not very hard 01/09/2023 PHQ-2 Answer Date Recorded Patient Health Questionnaire-2 Score 0 01/29/2023 [facility] Occupat ional [facility] - Occupational Stress Questionnaire Answer Date Recorded Do you feel stress - tense, restless, nervous, or anxious, or unable to sleep at night because your mind is troubled all the time - these days? Not at all 01/09/2023 Physical Activity Answer Date Recorded On average, how many days pe r week do you engage in moderate to strenuous exercise (like a brisk walk)? 0 days 01/09/2023 On average, how many minutes do you engage in exercise at this level? 0 min 01/09/2023 Food Insecurity Answer Date Recorded Within the past 12 months, y ou worried that your food would run out before you got the money to buy more. 1 01/09/2023 Within the past 12 months, t he food you bought just didn't last and you didn't have money to get more. 1 01/09/2023 Transportation Needs Answer Date Record ed In the past 12 months, has l ack of transportation kept you from medical appointments or from getting medications? 2 01/02 In the past 12 months, has l ack of transportation kept you from meetings, work, or from getting things needed for daily living? 2 01/14/2023 Housing Stability Answer Date Recorded In the last 12 months, was t here a time when you were not able to pay the mortgage or rent on time? 2 01/09/2023 In the last 12 months, how many places have you lived? 1 01/09/2023 In the last 12 months, was t here a time when you did not have a steady place to sleep or slept in a alf (including now)? 2 01/09/2023 Comments No Sex and Gender Information Value Date Recorded Sex Assigned at Not on file Legal Sex Female 11:34 AM EDT Gender Identity Not on file Sexual Orientation Not on file documented as of this encounter Functional Status documented as of this encounter Miscellaneous Notes * Telephone Encounter - Reagan Vazquez MD - 01/30/2023 12:02 PM EDT Medication refill approved documented in this encounter Plan of Treatment Not on file documented as of this encounter Visit Diagnoses Diagnosis Anxiety Anxiety state, unspecified documented in this encounter Additional Health Concerns Assessment Noted Time PHQ-9 Depression Total Score: 2 06/06/19 12:46 PM EST A fall risk assessment has been complete d for the patient 01/29/2023 8:21 AM EDT documented as of this encounter Care Teams Coil Winder Strap Relationship Specialty Start Date End Date Reagan Vazquez MD [address] [place] [address] PCP - [facility] [place] Attributed Provider 05/04/21 05/03/23 Reagan Vazquez MD [address] [place], [place] [id number] PCP - General Geriatric Medicine 08/13/23 02/01/25 Reagan Vazquez MD PCP - MSSP ACO Attributed Provider 12/06/22 01/31/23 Reagan Vazquez MD [address] [place], [place] [id number] [facility] Provider 05/04/23 11/01/23 Reagan Vazquez MD [address] [place], [place] [id number] PCP - W65+ ACO REACH Attributed Provider 11/02/23 Bessy Stephens Manager Community Family Medicine 11/16/22 Karen Richardson, boilermaker welderClerk General Office 01/09/23 02/02/23 Reagan Vazquez MD [address] [place] [address] A02+ Responsible Provider Family Medicine 03/04/24 Lian Fuller Supervisor AreaClerk General Office 09/13/24 09/13/24 documented as of this encounter
--- OUTSIDE RECORDS SUMMARY | 2025-03-08 09:40 | XMS_ITS | Encounter Summary ---
Author Organization [facility] Address [address] [place] [address] Care Team Providers Care Compo Conveyor Operator Name Role Phone Reagan Vazquez MD Primary Care Provider [phone] Bessy Stephens Unavailable Unavailabl e Reagan Vazquez MD Unavailable [phone] Reagan Vazquez MD Unavailable [phone] Lian Fuller Unavailable Unavailabl e Source Comments Please be aware that You and/or your organization are solely responsible for the use, security, privacy, and any decisions made with any information you receive from [facility] Encounter Details Date Type Department Care Team (Late st Contact Info) Description 02/13/2024 [facility] Health Information Management [address] [place] [address] Provider, Not In System, JOCKEY ROOM CUSTODIAN-C Provider Not in System Social History Tobacco Use Types Packs/Day Years [...] week 01/09/2023 How often do you attend chur or congregation services? More than 4 times per year 01/09/2023 Do you belong to any clubs o r organizations such as rastafarian groups, unions, fraternal or athletic groups, or [...] Recorded Patient Health Questionnaire-2 Score 0 01/29/2023 [facility] Occupational Stress Questionnaire Answer Date [...] place to sleep or slept in a prison (including now)? 2 01/09/2023 Comments No Sex and Gender Information Value Date Recorded Sex Assigned at Not on file Legal Sex Female 11:34 AM EDT Gender Identity Not on file Sexual Orientation Not on file documented as of this encounter Plan of Treatment Not on file documented as of this encounter Visit Diagnoses Not on filedocumented in this encounter Additional Health Concerns Assessment Noted Time PHQ-9 Depression Total Score: 2 06/06/19 23 12:46 PM EST A fall risk assessment has been complete d for the patient 01/29/2023 8:21 AM EDT documented as of this encounter Care Teams Compo Conveyor Operator Relationship Specialty Start Date End Date Reagan Vazquez MD PCP - General Geriatric Medicine 08/13/23 02/01/25 Reagan Vazquez MD [address] [place] [address] PCP - W65+ ACO REACH Attributed Provider 11/02/23 Bessy Stephens Deep Tissue Massage Therapist Family Medicine 11/16/22 Reagan Vazquez MD W65+ Responsible Provider Family Medicine 03/04/24 Lian Fuller Evp MarketingWrapper Sorter 09/13/24 09/13/24 documented as of this encounter
--- OUTSIDE RECORDS SUMMARY | 2025-03-08 09:40 | XMS_ITS | Encounter Summary ---
Author Organization [facility] Address [address] [place] [address] Care Team Providers Care Scale Agent Name Role Phone Reagna Vazquez MD Primary Care Provider [phone] Bessy Stephens Unavailable Unavailabl e Reagan Vazquez MD Unavailable [phone] Reagan Vazquez MD Unavailable [phone] Lian Fuller Unavailable Unavailabl e Source Comments Please be aware that You and/or your organization are solely responsible for the use, security, privacy, and any decisions made with any information you receive from [facility] Encounter Details Date Type Department Care Team (Late st Contact Info) Description 02/15/2024 [facility] Health Information Management [address] [place] [address] Provider, Not In System, OPTICS TEST TECHNICIAN-C Provider Not in System Social History Tobacco [...] neighbors? More than three times a week 02/18/2024 How often do you get togethe r with friends or relatives? Once a week 02/18/2024 How often do you attend chur or church services? More than 4 times per year 02/18/2024 Do you belong to any clubs o r organizations such as yazdanism groups, unions, fraternal or athletic groups, or school groups? Yes 02/18/2024 How often do you attend meet ings of the clubs or organizations you belong to? More than 4 times per year 02/18/2024 Are you , , di vorced, , never , or living with a partner? 02/18/2024 AUDIT-C Answer Date Recorded Q1: How often do you have a drink containing alc ohol? 2-3 times a week 02/18/2024 Q2: How many drinks containi ng alcohol do you have on a typical day when you are drinking? 1 or 2 02/18/2024 Q3: How often do you have si x or more drinks on one occasion? Never 02/18/2024 Overall Financial Resource Strain (CARDIA) Answe r Date Recorded How hard is it for you to pa y for the very basics like food, housing, medical care, and heating? Not hard at all 02/18/2024 PHQ-2 Answer Date Recorded Patient Health Questionnaire-2 Score 0 02/18/2024 [facility] - Occupational Stress Questionnaire Answer Date Recorded Do you feel stress - tense, restless, nervous, or anxious, or unable to sleep at night because your mind is troubled all the time - these days? Not at all 02/18/2024 Physical Activity Answer Date Recorded On average, how many days pe r week do you engage in moderate to strenuous exercise (like a brisk walk)? 3 days On average, how many minutes do you engage in exercise at this level? 40 min 02/18/2024 On average, how many minutes do you engage in exercise at this level? 40 min 02/18/2024 On average, how many days pe r week do you engage in moderate to strenuous exercise (like a brisk walk)? 3 days Days of Exercise per Week PEA Not on file Minutes of Exercise per Session PEA Not on file 02/18/2024 Food Insecurity Answer Date Recorded Within the [...] place to sleep or slept in a skilled nursing (including now)? 2 01/09/2023 [facility] Food Security Answer Date Recorded Within the past 12 months, t he food you bought just didn't last and you didn't have money to get more. 3 02/18/2024 Within the past 12 months, y ou worried that your food would run out before you got money to buy more. 3 02/18/2024 [facility] Transportation Needs Answer Date Re corded In the past 12 months, has l ack of reliable transportation kept you from medical appointments, meetings, work or from getting things needed for daily living? No 02/18/2024 [facility] Housing Answer Date Recorded What is your living situation today? I have a [facility] [place] place to live 02/18/[address] you li ve. Do you have problems with any of the following? None of the above 02/18/2024 [facility] Safety Answer Date Recorded How often does anyone, quintin rosenberg family and friends, threaten you with harm? 1 02/18/2024 How often does anyone, quintin rosenberg family and friends, insult or talk down to you? 1 02/18/2024 How often does anyone, quintin rosenberg family and friends, physically hurt you? 1 02/18/2024 How often does anyone, quintin rosenberg family and friends, scream or curse at you? 1 02/18/2024 [facility] Utilities Answer Date Recorded In the past 12 months has th [employer] electric, gas, oil, or water company threatened to shut off services in your home? No 02/18/2024 Comments No Sex and Gender Information Value Date Recorded Sex Assigned at Not on file Legal Sex Female 11:34 AM EDT Gender Identity Not on file Sexual Orientation Not on file documented as of this encounter Functional Status * AUDIT-C Score Answer Date of Assessment Author 3 02/18/2024 4:18 PM EDT Ruben Nieves CCMA * Question Answer Date of Assessment Author Q1: How often do you have a drink containing alcohol? 2-3 times a week 02/18/2024 4:18 PM EDT Elaina Nieves CCMA Q2: How many drinks containing alcohol do you have on a typical day when you are drinking? 1 or 2 02/18/2024 4:18 PM EDT Elaina Nieves CCMA Q3: How often do you have six or more drinks on one occasion? Never 02/18/2024 4:18 PM EDT Elaina Nieves CCMA documented as of this encounter Plan of Treatment Not on file documented as of this encounter Visit Diagnoses Not on filedocumented in this encounter Additional Health Concerns Assessment Noted Time PHQ-9 Depression Total Score: 2 06/06/19 23 12:46 PM EST A fall risk assessment has been complete d for the patient 01/29/2023 8:21 AM EDT documented as of this encounter Care Teams Scale Agent Relationship Specialty Start Date End Date Reagan Vazquez MD PCP - General Geriatric Medicine 08/13/23 02/01/25 Reagan Vazquez MD [address] [facility] [place] [address] PCP - W65+ ACO REACH Attributed Provider 11/02/23 Bessy Stephens Imagery Analyst Family Medicine 11/16/22 Reagan Vazquez MD W65+ Responsible Provider Family Medicine 03/04/24 Lian Fuller Tunnel Heading InspectorCollection Correspondent 09/13/24 09/13/24 documented as of this encounter
--- OUTSIDE RECORDS SUMMARY | 2025-03-08 09:40 | XMS_ITS | Clinical Summary ---
Author Organization [facility] [address] [place] [address] Address [address] [place] [address] Phone Care Team Providers Care Reel Hooker Name Role Phone Lewis Goyal Primary Care Provider [phone] Allergies Active Allergy Reactions Criticality Noted Date Comments Amlodipine 02/28/2025 Codeine 08/22/2005 N/v Lisinopril Swelling 09/27/2021 Ankle swelling Pentazocine Lactate 08/22/2005 N/v Medications cyclobenzaprine (FLEXERIL) 10 mg tablet Take 1 tablet (10 mg total) by mouth 1 (one) time each day if needed. 07/19/2021 Active ipratropium-alb uteroL (Combivent Respimat) 20-100 mcg/actuation inhaler Take 1 puff by mouth 4 (four) times a day. 07/17/2021 Active levothyroxine (SYNTHROID, LEVOTHROID) 88 mcg tablet Take 88 mcg by mouth daily. 07/16/2021 Active atorvastatin (LIPITOR) 10 mg tablet Take 1 tablet (10 mg total) by mouth 1 (one) time each day. 12/02/2019 Active LORazepam (ATIVAN) 0.5 mg tablet TAKE 2 TABLETS BY MOUTH DAILY NEEDED FOR ANXIETY 12/09/2018 Active umeclidinium-vi lanteroL (ANORO ELLIPTA) 62.5-25 mcg/actuation inhaler Inhale into the lungs. Active calcium carbonate-vitam in D3 500 mg-3.125 mcg (125 unit) tablet per tabelt 1 TAB DAILY Active gabapentin (NEURONTIN) 300 mg capsule Take 1 capsule (300 mg total) by mouth 3 times daily. 07/04/2024 Active losartan (COZAAR) 100 mg tablet Take 1 tablet (100 mg total) by mouth 1 (one) time each day. 02/27/2022 Active ibuprofen (ADVIL,MOTRIN) 800 mg tablet Take 1 tablet (800 mg total) by mouth 3 (three) times a day if needed for mild pain (pain). 90 tablet 5 11/28/2024 Active Active Problems Problem Noted Date Diagnosed Date Pure hypercholesterolemia 09/26/2016 Assessment & Plan (02/28/2025 2:32 PM EDT): Orders: Thyroid stimulating hormone with reflex to free t4 and free t3; Future Ambulatory referral to Endocrinology; Future Hiatal hernia 12/17/2015 Overview (04/21/2024): LARGE BY TONNY MENDENHALL DEC 2015 Hypothyroidism 10/05/2015 Assessment & Plan (02/28/2025 2:32 PM EDT): Orders: Thyroid stimulating hormone with reflex to free t4 and free t3; Future Ambulatory referral to Endocrinology; Future Osteoporosis 10/03/2015 Assessment & Plan (02/28/2025 2:32 PM EDT): Orders: Thyroid stimulating hormone with reflex to free t4 and free t3; Future Ambulatory referral to Endocrinology; Future Acute pancreatitis 10/27/2012 Glaucoma suspect 01/20/2012 Overview (04/21/2024): Dr. Don Known medical problems 12/13/2009 Overview (04/21/2024): DJD toni hips COPD (chronic obstructive pu lmonary disease) ([facility] V24, [facility] V28) 09/26/2009 Assessment & Plan (02/28/2025 2:32 PM EDT): Orders: Thyroid stimulating hormone with reflex to free t4 and free t3; Future Ambulatory referral to Endocrinology; Future Diverticulitis of colon without hemorrhage 03/13 Overview (04/21/2024): Incidental finding at colonoscopy 03/13/2008. Anxiety 11/15/2007 IBS (irritable bowel syndrome) 10/04/2007 Wrist joint pain 09/06/2007 Essential hypertension, benign 09/03/2006 Assessment & Plan (02/28/2025 2:32 PM EDT): Orders: Thyroid stimulating hormone with reflex to free t4 and free t3; Future Ambulatory referral to Endocrinology; Future Cervical spondylosis without myelopathy 06/01/19 07 Lumbosacral spondylosis without myelopathy 06/01 Overview (04/21/2024): S/P fusion surgery at age 15 for scoliosis Encounters Date Type Department Care Team Description 02/28/2025 1:00 PM EDT Office Visit Adult Medicine [address] [phone] Lewis Goyal PA Osteoporosis, unspecified osteoporosis type, unspecified pathological fracture presence (Primary Dx); Routine general medical examination at a health care facility; Chronic bronchitis, unspecified chronic bronchitis type ([facility] V24, [facility] V28); Essential hypertension, benign; Hypothyroidism, unspecified type; Pure hypercholesterolemia 02/21/2025 Results Follow-Up Adult Medicine [address] [phone] Elen Sidhu PA 02/10/2025 Telephone Adult Medicine [address] [phone] Shaylee Kendrick MA 01/10/2025 8:10 AM EDT - 01/10/2025 11:59 PM EDT Hospital Encounter [facility] CT Scan [address] [place] [address] Spinal stenosis of cervical region Discharge Disposition: Home or Self Care 12/16/2024 Telephone Adult Medicine [facility] - [address] [phone] Lewis Goyal PA 12/13/2024 Telephone Adult Medicine [address] [phone] Lewis Goyal PA 12/09/2024 11:42 AM EDT - 12/09/2024 11:59 PM EDT Hospital Encounter Radiology Department - [address] [phone] Left cervical radiculopathy; Chronic bronchitis, unspecified chronic bronchitis type (CMS/HCC V24, CMS/HCC V28); Essential hypertension, benign; Irritable bowel syndrome, unspecified type; Hypothyroidism, unspecified type; Osteoporosis, unspecified osteoporosis type, unspecified pathological fracture presence; Pure hypercholesterolemia Discharge Disposition: Home or Self Care from Last 3 Months Immunizations Immunization Administration Dates Next Due H1N1 Inj Preservative Free 04/23/2009 Influenza trivalent, 0.5mL ( Fluad) 65yo and older 01/21/2017 Influenza trivalent, 0.5mL, preservative free (Fluarix; FluLaval; Fluzone) ages 6mo and older (Afluria) 3 years and older 01/24/2013,01/25/2012,01/09/2011,02/02,01/09/2009,03/02/2007,04/01/2006 Pneumococcal conjugate 13 va lent (Prevnar 13, PCV13) 2mo and older 12/04/2014 Pneumococcal polysaccharide 23 valent (Pneumovax 23) 2yo and older 01/30/2014,05/23/2008 Td Tetanus diptheria (Tdvax) 7yo and older 05/16/2003 Td, Unspecified 05/16/2003 Tdap Tetanus diptheria acell ular pertussis (Boostrix; Adacel) 7yo and older 04/22/2012 Zoster Live 04/23/2011 Zoster recombinant (Shingrix ) 19yo and older 03/10/2018,12/14/2017 Surgical History Surgery Date Site/Laterality Comments CHOLECYSTECTOMY 1988 PROCEDURE: HISTORICAL CHOLECYSTECTOMY COLONOSCOPY 03/13/2008 PROCEDURE: TX COLONOSCOPY FLX DX W/COLLJ SPEC WHEN PFRMD; COMMENT: diverticulosis OTHER SURGICAL HISTORY PROCEDURE: HISTORY OTHER; COMMENT: scoliosis surgery age 15 KNEE SURGERY Right PROCEDURE: HISTORICAL KNEE SURGERY; COMMENT: arthroscopic WISDOM TOOTH EXTRACTION PROCEDURE: HISTORICAL WISDOM TEETH EXTRACTION HIP ARTHROPLASTY 2010 Right PROCEDURE: HISTORICAL HIP REPLACEMENT COLONOSCOPY 03/11 PROCEDURE: HISTORICAL COLONOSCOPY; COMMENT: tics; repeat in ten yrs HIP ARTHROPLASTY 2012 Left PROCEDURE: HISTORICAL HIP REPLACEMENT OTHER SURGICAL HISTORY PROCEDURE: ---- OTHER ----; COMMENT: hiatal hernia Medical History Medical History Date Comments Scoliosis (and kyphoscoliosi s), idiopathic DX:Scoliosis (and kyphoscoli osis), idiopathic; COMMENT: spinal fusion at age 15 Cervical spondylosis without myelopathy DX:Cervical spondylosis without myelopathy Lumbosacral spondylosis with out myelopathy 06/01/2006 DX:Lumbosacral spondylosis w ithout myelopathy; COMMENT: S/P fusion surgery at age 15 for scoliosis Historical Medical DX 05/2006 DX:DeQuerv ain's disease; COMMENT: injected Diverticulosis of colon (wit hout mention of hemorrhage) 03/13/2008 DX:Diverticulosis of colon ( without mention of hemorrhage); COMMENT: Incidental finding at colonoscopy 03/13/2008. Special screening for malign ant neoplasms, colon 03/13/2008 DX:Special screening for mal ignant neoplasms, colon; COMMENT: Negative colonoscopy 03/13/2008, no colon cancer screening needed for 10 years. Anxiety 11/15/2007 DX:Anxiety Hypertension DX:Hypertension Osteoarthrosis, unspecified whether generalized or localized, other specified sites 12/13/2009 DX:Osteoarthrosis, unspecifi ed whether generalized or localized, other specified sites Hiatal hernia 12/17/2015 DX:Hiatal hernia ; COMMENT: LARGE BY TONNY MENDENHALL DEC 2015 Family History Medical History Relation Name Comments Heart attack Father age 71 Other cancer Mother pancreastic and stomach Liver cancer Other maternal aunt Breast cancer Sister 1 age 69 Other: pulmonary fibrosis Sister 2 Arthritis Sister 3 Stroke Sister 4 Hypertension Sister 5 Hypertension Sister 6 Colon cancer Neg Hx Ovarian cancer Neg Hx Relation Name Status Comments Brother Alive Father [place] age 71 Maternal Grandmother gastric cancer Mother gastric cancer, pancreatic cancer Other Sister 1 age 69 Alive Sister 2 Alive stroke age 44 b reast cancer Sister 3 Sister 4 Sister 5 Sister 6 Sister 7 Alive Social History Tobacco Use Types Packs/Day Years Used Date Smoking Tobacco: Former Cigarettes 0.5 12 0 05/04/1963 - 05/04/1975 Smokeless Tobacco: Never Tobacco Cessation:Counseling Given: Not Answered Alcohol Use Standard Drinks/Week Comments Yes 4.2 (1 standard drink = 0.6 oz p ure alcohol) Housing Instability Answer Date Recorde d Are you worried that in the next 2 months you may not have stable housing? No 02/23/2025 Food Access & Nutrition Answer Date Rec orded Do you have access to a vari ety of food including fruits and vegetables? Yes 02/23/2025 Access to Healthcare Answer Date Record ed Within the last 3 months, ho w many times did you visit the emergency department for your medical care? 0 02/23/2025 Health Literacy Answer Date Recorded How often do you need to hav e someone help you when you read instructions, pamphlets, or other written material from your doctor or pharmacy? Never 02/23/2025 Caregiver: How often do you need to have someone help you when you read instructions, pamphlets, or other written material from your doctor or pharmacy? Not on file 02/23/2025 Financial Risk Answer Date Recorded How hard is it for you to pa y for the very basics like food, housing, medical care, and air conditioning / heating? Not very hard 02/23/2025 Transportation Answer Date Recorded Has the lack of transportati on kept you from meetings, work, or from getting things needed for daily living? No Has the lack of transportati on kept you from medical appointments or from getting medications? No 02/23/2025 Social Isolation Answer Date Recorded How often do you feel lonely or isolated from th ose around you? Never 02/23/2025 Food Risk Answer Date Recorded Within the past 12 months we worried whether our food would run out before we got money to buy more. Never true 02/23/2025 Within the past 12 months th e food we bought just didn't last and we didn't have money to get more. Never true 02/23/2025 Dependent Care Answer Date Recorded Do you need help finding or paying for care for your loved ones. For example, housekeeper child care or elderly care for an older adult? No 02/23/2025 Education Answer Date Recorded Do you think completing more education or training, like finishing a GED, going to college, or learning a trade, would be helpful for you? N/A 02/23/2025 Employment and Income Answer Date Recor ded During the last four weeks, have you been actively looking for work? No 02/23/2025 Living Situation Answer Date Recorded What is your living situation? Unrecognized valu e 02/23/2025 Comments No Sex and Gender Information Value Date Recorded Sex Assigned at Female 12/20/2024 10:25 PM EDT Legal Sex Female 2:03 PM EST Gender Identity Not on file Sexual Orientation Not on file Obstetrics History Last Filed Vital Signs Vital Sign Reading Time Taken Comments Blood Pressure 130/80 02/28/2025 1:28 PM EDT Pulse 82 02/28/2025 1:00 PM EDT Temperature 36.8 C (98.2 F) 02/28/2025 12:58 PM EDT Respiratory Rate 15 02/28/2025 12:58 PM EDT Oxygen Saturation - - Inhaled Oxygen Concentration - - Weight 60.8 kg (134 lb) 02/28/2025 12:58 PM EDT Height 152.4 cm (5') 11/28/2024 9:00 AM EDT Body Mass Index 26.17 11/28/2024 9:00 AM EDT Plan of Treatment Upcoming Encounters Date Type Department Care Team (Late st Contact Info) Description 09/01/2025 8:00 AM EDT Office Visit Adult Medicine [address] [phone] Lewis Goyal PA [address] [place] [phone] Health Maintenance Due Date Last Done Comments Influenza Vaccine (#1) 2025 , 02/18/2023, 01/29/2023, Additional history exists Hypertension/CHF/CAD Annual BMP Blood Test 02/21/2026 02/21/2025, 02/16/2024, 10/13/2023, Additional history exists Social Influencers of Health Screening 02/23/2026 02/23/2025 Falls Risk Assessment 02/28/2026 02/28/2025 Medicare Annual Wellness Visit 02/28/2026 02/28/2025 Cholesterol Screening (Lipid Panel) 02/21/2030 02/21/2025, 02/16/2024, 09/04/2023, Additional history exists DTaP,Tdap,and Td Vaccines (5 - Td or Tdap) 05/18/2030 05/18/2020, 04/22/2012, 05/16/2003, Additional history exists Osteoporosis Screening (Bone Density Screening) 07/14/2034 07/14/2024, 07/14/2024, 06/03/2022, Additional history exists Hepatitis C Screening Completed 01/31/2014 Zoster Vaccines Completed 03/10/2018, 05/2017, 12/14/2017, Additional history exists Pneumococcal Vaccine: 50+ Years Completed 02/07/2021, 01/10/2021, 08/09/2020, Additional history exists RSV Immunization Adult Patients Completed 02/11/2023 Breast Cancer Screening Discontinued 07/01/19, 05/06/2019, 05/05/2018, Additional history exists COVID-19 Vaccine Completed 11/18/2024, , 11/08/2022, Additional history exists Depression Screening Completed 02/23/2025 HIB Vaccines Aged Out No longer eligi ble based on patient's age to complete this topic HPV Vaccines Aged Out No longer eligi ble based on patient's age to complete this topic Hepatitis A Vaccines Aged Out No long er eligible based on patient's age to complete this topic Hepatitis B Vaccines Aged Out No long er eligible based on patient's age to complete this topic IPV Vaccines Aged Out No longer eligi ble based on patient's age to complete this topic MMR Vaccines Aged Out No longer eligi ble based on patient's age to complete this topic Meningococcal ACWY Vaccine Aged Out N o longer eligible based on patient's age to complete this topic Meningococcal B Vaccine Aged Out No l onger eligible based on patient's age to complete this topic RSV Immunization Patients Under 20 months Aged Out No longer eligible based on patient's age to complete this topic Varicella Vaccines Aged Out No longer eligible based on patient's age to complete this topic Procedures Procedure Name Priority Date/Time Associated Diagnosis Comments TRIIODOTHYRONINE FREE Routine 02/21/2025 7:44 AM EDT Hypothyroidism, unspecified type FREE THYROXINE WITH REFLEX TO FREE TRIIODOTHYRONINE Routine 02/21/2025 7:44 AM EDT Hypothyroidism, unspecified type CBC WITH AUTO DIFFERENTIAL Routine 02/21/2025 7:44 AM EDT Screening for deficiency anemia CBC AND DIFFERENTIAL Routine 02/21/2025 7:44 AM EDT Screening for deficiency anemia COMPREHENSIVE METABOLIC PANEL Routine 02/21/2025 7:44 AM EDT Hypertension, unspecified type LIPID PANEL WITH REFLEX TO DIRECT LDL Routine 02/21/2025 7:44 AM EDT Pure hypercholesterolemia THYROID STIMULATING HORMONE WITH REFLEX TO FREE T4 AND FREE T3 Routine 02/21/2025 7:44 AM EDT Hypothyroidism, unspecified type CT CERVICAL SPINE WO CONTRAST Routine 01/10/2025 8:22 AM EDT Spinal stenosis of cervical region MR CERVICAL SPINE WO CONTRAST Routine 12/09/2024 12:56 PM EDT Left cervical radiculopathy Chronic bronchitis, unspecified chronic bronchitis type (CMS/HCC V24, CMS/HCC V28) Essential hypertension, benign Irritable bowel syndrome, unspecified type Hypothyroidism, unspecified type Osteoporosis, unspecified osteoporosis type, unspecified pathological fracture presence Pure hypercholesterolemia SCR MAMMO BI INCL CAD Routine 05/06/2019 8:17 AM EST Encounter for screening mammogram for malignant neoplasm of breast HEPATITIS C SCREENING Routine 01/31/2014 from Last 3 Months or Most Recently Relevant to Health Maintenance Results * (ABNORMAL) Thyroid stimulating hormone with reflex to free t4 and free t3 (02/21/2025 7:44 AM EDT) TSH 8.11(H) 0.40 - 4.00 mcIU/mL LAB CHEMISTRY METHOD 02/21/2025 11:22 AM EDT [facility] Blood Venous blood specimen / Unknown Venipuncture / Unknown 02/21/2025 7:44 AM EDT 02/21/2025 7:44 AM EDT us Elen Sidhu PA LAB BLOOD ORDERABLES Final Resul t Performing Organization Address City/[facility]/ZIP Co de Phone Number [facility] [address] [place] [address], [place] [phone] * Free thyroxine with reflex to free triiodothyronine (02/21/2025 7:44 AM EDT) Free T4 1.33 0.70 - 1.80 ng/dL LAB CHEMISTRY METHOD 02/21/2025 11:49 AM EDT [facility] Blood Venous blood specimen / Unknown Venipuncture / Unknown 02/21/2025 7:44 AM EDT 02/21/2025 7:44 AM EDT us Elen CARO LAB BLOOD ORDERABLES Final Resul t Performing Organization Address [facility] de Phone Number [facility] [address] [place] [address], [place] [phone] * Lipid panel with reflex to direct LDL (02/21/2025 7:44 AM EDT) Cholesterol 162 0 - 200 mg/dL LAB CHEMISTRY METHOD 02/21/2025 10:46 AM EDT [facility] Triglycerides 63 0 - 150 mg/dL LAB CHEMISTRY METHOD 02/21/2025 10:46 AM EDT [facility] HDL 80 >=40 mg/dL LAB CHEMISTRY METHOD 02/21/2025 10:46 AM EDT [facility] LDL Calculated 69 0 - 100 mg/dL LAB CHEMISTRY METHOD 02/21/2025 10:46 AM EDT [facility] Comment:Estimated LDL Calcul ated using equation: Total cholesterol - HDL cholesterol - (Triglycerides/5) VLDL Cholesterol Francis 12.6 mg/dL LAB CHEMISTRY METHOD 02/21/2025 10:46 AM EDT [facility] Non HDL Chol. (LDL+VLDL) 82 <145 mg/dL LAB CHEMISTRY METHOD 02/21/2025 10:46 AM EDT [facility] Chol/HDL Ratio 2.0 0.0 - 4.4 LAB CHEMISTRY METHOD 02/21/2025 10:46 AM T [facility] Blood Venous blood specimen / Unknown Venipuncture / Unknown 02/21/2025 7:44 AM EDT 02/21/2025 7:44 AM EDT us Elen Nahum CARO LAB BLOOD ORDERABLES Final Resul t [facility] [address] [place] [address], * CBC auto differential (02/21/2025 7:44 AM EDT) WBC 9.5 4.8 - 10.8 K/mcL LAB HEMETOLOGY METHOD 02/21/2025 10:11 AM [facility] RBC 4.30 3.80 - 4.80 M/mcL LAB HEMETOLOGY METHOD 02/21/2025 10:11 AM EDT [facility] Hemoglobin 13.4 11.5 - 16.0 g/dL LAB HEMETOLOGY METHOD 02/21/2025 10:11 AM [facility] Hematocrit 40.1 35.0 - 47.0 % LAB HEMETOLOGY METHOD 02/21/2025 10:11 AM [facility] MCV 92.8 79.0 - 98.0 FL LAB HEMETOLOGY METHOD 02/21/2025 10:11 AM T [facility] MCH 31.0 27.0 - 32.0 pcg LAB HEMETOLOGY METHOD 02/21/2025 10:11 AM [facility] MCHC 33.4 32.0 - 37.0 g/dL LAB HEMETOLOGY METHOD 02/21/2025 10:11 AM [facility] RDW 13.2 11.0 - 15.0 % LAB HEMETOLOGY METHOD 02/21/2025 10:11 AM [facility] Platelets 337 130 - 400 K/mcL LAB HEMETOLOGY METHOD 02/21/2025 10:11 AM [facility] MPV 10.3 7.0 - 11.0 FL LAB HEMETOLOGY METHOD 02/21/2025 10:11 AM [facility] NRBC 0.0 <1.0 % LAB HEMETOLOGY METHOD 02/21/2025 10:11 AM [facility] NRBC Absolute 0.00 <0.10 K/mcL LAB HEMETOLOGY METHOD 02/21/2025 10:11 AM [facility] Neutrophils Relative 62.7 % LAB HEMETOLOGY METHOD 02/21/2025 10:11 AM [facility] Lymphocytes Relative 24.1 % LAB HEMETOLOGY METHOD 02/21/2025 10:11 AM [facility] Monocytes Relative 8.7 % LAB HEMETOLOGY METHOD 02/21/2025 10:11 AM [facility] Eosinophils Relative 3.6 % LAB HEMETOLOGY METHOD 02/21/2025 10:11 AM [facility] Basophils Relative 0.6 % LAB HEMETOLOGY METHOD 02/21/2025 10:11 AM [facility] Immature Granulocytes Relative 0.3 % LAB HEMETOLOGY METHOD 02/21/2025 10:11 AM [facility] Neutrophils Absolute 5.93 1.50 - 7.00 K/mcL LAB HEMETOLOGY METHOD 02/21/2025 10:11 AM EDT [facility] Lymphocytes Absolute 2.28 1.00 - 5.00 K/[facility] HEMETOLOGY METHOD 02/21/2025 10:11 AM EDT [facility] Monocytes Absolute 0.82 0.20 - 1.00 K/[facility] HEMETOLOGY METHOD 02/21/2025 10:11 AM EDT [facility] Eosinophils Absolute 0.34 0.00 - 0.50 K/[facility] HEMETOLOGY METHOD 02/21/2025 10:11 AM EDT [facility] Basophils Absolute 0.06 0.00 - 0.20 K/[facility] HEMETOLOGY METHOD 02/21/2025 10:11 AM EDT [facility] Immature Granulocytes Absolute 0.03 0.00 - 0.03 K/[facility] HEMETOLOGY METHOD 02/21/2025 10:11 AM EDT [facility] Blood Venous blood specimen / Unknown Venipuncture / Unknown 02/21/2025 7:44 AM EDT 02/21/2025 7:44 AM EDT us Elen Nahum PA LAB BLOOD ORDERABLES Final Resul t [facility] [address] [place] [address], * Triiodothyronine free (02/21/2025 7:44 AM EDT) T3, Free 235 230 - 420 pcg/dL LAB CHEMISTRY METHOD 02/21/2025 12:37 PM EDT [facility] Blood Venous blood specimen / Unknown Venipuncture / Unknown 02/21/2025 7:44 AM EDT 02/21/2025 7:44 AM EDT us Elen Nahum CARO LAB BLOOD ORDERABLES Final Resul t [facility] [address] [place] [address], * Comprehensive metabolic panel (02/21/2025 7:44 AM EDT) Sodium 137 133 - 145 mmol/L LAB CHEMISTRY METHOD 02/21/2025 10:46 AM [facility] Potassium 4.1 3.5 - 5.5 mmol/L LAB CHEMISTRY METHOD 02/21/2025 10:46 AM [facility] Chloride 103 96 - 110 mmol/L LAB CHEMISTRY METHOD 02/21/2025 10:46 AM [facility] CO2 26 21 - 32 mmol/L LAB CHEMISTRY METHOD 02/21/2025 10:46 AM [facility] Anion Gap 8 3 - 11 LAB CHEMISTRY METHOD 02/21/2025 10:46 AM [facility] Glucose 90 70 - 100 mg/dL LAB CHEMISTRY METHOD 02/21/2025 10:46 AM [facility] BUN 9 5 - 25 mg/dL LAB CHEMISTRY METHOD 02/21/2025 10:46 AM [facility] Creatinine 0.54 0.50 - 1.10 mg/dL LAB CHEMISTRY METHOD 02/21/2025 10:46 AM [facility] eGFR 95 >=60 mL/min/1. 73m2 LAB CHEMISTRY METHOD 02/21/2025 10:46 AM [facility] Comment:Calculation based on the Chronic Kidney Disease Epidemiology Collaboration (CKD-EPI) equation refit without adjustment for race. BUN/Creatinine Ratio 16.7 LAB CHEMISTRY METHOD 02/21/2025 10:46 AM [facility] Calcium 9.7 8.5 - 10.5 mg/dL LAB CHEMISTRY METHOD 02/21/2025 10:46 AM EDT [facility] AST (SGOT) 27 10 - 42 unit/L LAB CHEMISTRY METHOD 02/21/2025 10:46 AM [facility] ALT (SGPT) 23 10 - 60 unit/L LAB CHEMISTRY METHOD 02/21/2025 10:46 AM [facility] Alkaline Phosphatase 95 42 - 121 unit/L LAB CHEMISTRY METHOD 02/21/2025 10:46 AM T [facility] Total Protein 7.8 6.0 - 8.0 g/dL LAB CHEMISTRY METHOD 02/21/2025 10:46 AM [facility] Albumin 3.9 3.2 - 5.0 g/dL LAB CHEMISTRY METHOD 02/21/2025 10:46 AM [facility] Total Bilirubin 0.6 0.0 - 1.4 mg/dL LAB CHEMISTRY METHOD 02/21/2025 10:46 AM EDT [facility] Blood Venous blood specimen / Unknown Venipuncture / Unknown 02/21/2025 7:44 AM EDT 02/21/2025 7:44 AM EDT us Elen CARO LAB BLOOD ORDERABLES Final Resul t [facility] [address] [place] [address], * CT Cervical Spine wo Contrast (01/10/2025 8:22 AM EDT) Anatomical Region Laterality Modality Spine, C-spine Computed Tomogra phy 01/18/2025 1:32 PM EDT Impressions 01/18/2025 2:52 PM EDT 1. No acute abnormality. 2. Postoperative changes. 3. Erosive changes at the C1/C2 level. 4. Marked narrowing of the trachea at the thoracic inlet. -------- FINAL REPORT -------- Dictated By: Mello Giles Dictated Date: 01/18/2025 13:32 ET Assigned Physician: Mello Giles Reviewed and Electronically Signed By: Mello Giles Signed Date: 01/18/2025 14:52 ET Workstation ID: [id number] Transcribed By: Self Edit Transcribed Date: 01/18/2025 13:33 ET Narrative 01/18/2025 2:52 PM EDT EXAMINATION: CT CERVICAL WITHOUT CONTRAST CLINICAL INFORMATION: Cervical radiculopathy. Prior cervical surgery. Spinal stenosis. S/P C6-[address] Alvarez on 08/21/2022 for severe central stenosis, cord compression, and cervical myelopathy. COMPARISON: None TECHNIQUE: Multidetector CT. Examination of the cervical spine. Examination of the cervical spine without IV contrast. Reformatting in the coronal and sagittal planes. DLP: 608 mGy-cm Dose optimization was performed including the use of low-dose iterative reconstruction technique with automatic exposure control based on patient size. Type of contrast: None Volume of IV contrast: None Volume of contrast discarded: 0 mL FINDINGS: Digital rn hemo dialysis demonstrates scoliosis. ALIGNMENT: There is reversal of expected lordosis. There is a convex right scoliosis. There is sclerosis at the craniocervical junction. The skull base rest upon the odontoid. FRACTURE: No acute fracture. FOCAL LESION/LOSS OF VOLUME: No suspicious focal lesion. There are erosive changes at the C1/C2 level. There are erosions of the odontoid. CANAL CONTENTS: Limited assessment. There is no large abnormality within the canal. DISC/OSTEOPHYTE: There is distortion of the anatomy secondary to previous instrumentation and fusion. The vertebral bodies from C4 through C7 are fused. There is a disc prosthesis at C6/C7. There is ankylosis of the posterior elements on the right from C2 through C6. There is ankylosis of the posterior elements on the left from C2 through C6. PARASPINAL SOFT TISSUES: There is no suspicious paraspinal abnormality. There is artifact related to prior instrumentation. There is synovial thickening and/or pannus associated with the C1/C2 level. APEX OF THE CHEST: There is no suspicious abnormality in the lung apices. There is fairly marked narrowing of the trachea at the thoracic inlet. OTHER: No other suspicious abnormalities Procedure Note Mello Giles MD - 01/18/2025 EXAMINATION: CT CERVICAL WITHOUT CONTRAST CLINICAL INFORMATION: Cervical radiculopathy. Prior cervical surgery. Spinal stenosis. S/PC6-[address] Alvarez on 08/21/2022 for severe central stenosis, cordcompression, and cervical myelopathy. COMPARISON: None TECHNIQUE: Multidetector CT. Examination of the cervical spine. Examination of the cervical spine without IV contrast. Reformatting in the coronal and sagittal planes. DLP: 608 mGy-cm Dose optimization was performed including the use of low-dose iterativereconstruction technique with automatic exposure control based on patientsize. Type of contrast: None Volume of IV contrast: None Volume of contrast discarded: 0 mL FINDINGS: Digital rn hemo dialysis demonstrates scoliosis. ALIGNMENT: There is reversal of expected lordosis. There is a convex rightscoliosis. There is sclerosis at the craniocervical junction. The skullbase rest upon the odontoid. FRACTURE: No acute fracture. FOCAL LESION/LOSS OF VOLUME: No suspicious focal lesion. There are erosivechanges at the C1/C2 level. There are erosions of the odontoid. CANAL CONTENTS: Limited assessment. There is no large abnormality withinthe canal. DISC/OSTEOPHYTE: There is distortion of the anatomy secondary to previousinstrumentation and fusion. The vertebral bodies from C4 through C7 arefused. There is a disc prosthesis at C6/C7. There is ankylosis of theposterior elements on the right from C2 through C6. There is ankylosis ofthe posterior elements on the left from C2 through C6. PARASPINAL SOFT TISSUES: There is no suspicious paraspinal abnormality.There is artifact related to prior instrumentation. There is synovial thickening and/or pannus associated with the C1/C8ihhjl. APEX OF THE CHEST: There is no suspicious abnormality in the lung apices.There is fairly marked narrowing of the trachea at the thoracic inlet. OTHER: No other suspicious abnormalities IMPRESSION: 1. No acute abnormality. 2. Postoperative changes. 3. Erosive changes at the C1/C2 level. 4. Marked narrowing of the trachea at the thoracic inlet. -------- FINAL REPORT -------- Dictated By: Mello Giles Dictated Date: 01/18/2025 13:32 ET Assigned Physician: Mello Giles Reviewed and Electronically Signed By: Mello Giles Signed Date: 01/18/2025 14:52 ET Workstation ID: [id number] Transcribed By: Self Edit Transcribed Date: 01/18/2025 13:33 ET Lewis CARO IM[address]ak CT PROCEDURES Final R esult * MR Cervical Spine wo Contrast (12/09/2024 12:56 PM EDT) Anatomical Region Laterality Modality C-spine, Spine Magnetic Resonan ce 12/12/2024 11:4 1 PM EDT Narrative 12/13/2024 12:00 AM EDT MRI of the cervical spine without intravenous contrast. History cervical radiculopathy. Examination was performed on 1.5 Nancy magnet without administration of intravenous contrast. Examination is extremely limited due to motion artifact. Comparison with previous examination from 10/31/2014. Cerebellar tonsils are in normal position. There is thickening of the odontoid process of the C2 with irregular bone marrow signal revealing foci of bone marrow edema on STIR images. There is also thickening of the surrounding soft tissues which could reflect inflammatory changes. Correlation with CT scan for better definition of the bony architecture is recommended. At C2-3 level disc is decreased in height. No focal disc herniation spinal cord or nerve root compression. C3-4 disc is decreased in height and T2 signal. There is no focal disc herniation or spinal cord compression. There is suggestion of hypertrophy and fusion of the left facet joint. There is narrowing of the left C4 neural foramen. At C4-5 level disc is diminutive. There is suggestion of partial anterior fusion of the vertebral bodies as well as fusion of the hypertrophied left facet joint. There are marginal osteophytes with narrowing of the anterior subarachnoid space. There is narrowing of the left C5 neural foramen. At C5-6 level disc is diminutive at there is partial fusion of the vertebral bodies and left facet joint. There is no spinal cord or nerve root compression. Anterior wedge deformity of the C6. There is mild retrolisthesis of C6 over C7. There is magnetic susceptibility artifact at C6-7 level probably due to surgical anterior fusion . There is disc osteophyte complex with narrowing of the anterior subarachnoid space and effacement of the spinal cord. There is stenosis of the lateral recesses and C7 neural foramina. There is possible compression of the C7 nerve roots. At C7-T1 level there is arm narrowing of the disc space and marginal osteophytes with some narrowing of the C8 neural foramen on the left. There is no spinal cord compression. Perivertebral soft tissues appear to be unremarkable. There is no focal signal abnormalities within the spinal cord. CONCLUSIONS: Very limited by motion artifact examination. Abnormal appearance of odontoid process of the C2 with irregular bone marrow signal with areas of bone marrow edema and thickening of the surrounding soft tissues. It could be inflammatory. Possibility of infectious process cannot be ruled out. Correlation with site CT appearance is recommended. Suggestion of partial fusion at C4-5 and C5-6 levels with partial fusion of the bodies as well as some fusion of the left facet joints. Compression deformity of the T6 with large area of magnetic susceptibility artifact probably from anterior fusion. Effacement of the anterior surface of the spinal cord at C6-7 level. No focal signal abnormalities within the cord. Narrowing of the lateral recesses and neural foramina at several levels as detailed. CT scan of the cervical spine is recommended for better assessment of the bony architecture, especially of the C2. -------- FINAL REPORT -------- Dictated By: Nayeli Winters Dictated Date: 12/12/2024 23:41 ET Assigned Physician: Nayeli Winters Reviewed and Electronically Signed By: Nayeli Winters Signed Date: 12/13/2024 00:00 ET Workstation ID: [id number] Transcribed By: Self Edit Transcribed Date: 12/12/2024 23:41 ET Procedure Note Nayeli Winters MD - 12/13/2024 MRI of the cervical spine without intravenous contrast. History cervical radiculopathy. Examination was performed on 1.5 Nancy magnet without administration ofintravenous contrast. Examination is extremely limited due to motionartifact. Comparison with previous examination from 10/31/2014. Cerebellar tonsils are in normal position. There is thickening of the odontoid process of the C2 with irregular bonemarrow signal revealing foci of bone marrow edema on STIR images. Thereis also thickening of the surrounding soft tissues which could reflectinflammatory changes. Correlation with CT scan for better definition ofthe bony architecture is recommended. At C2-3 level disc is decreased in height. No focal disc herniation spinalcord or nerve root compression. C3-4 disc is decreased in height and T2 signal. There is no focal discherniation or spinal cord compression. There is suggestion of hypertrophyand fusion of the left facet joint. There is narrowing of the left [id number] foramen. At C4-5 level disc is diminutive. There is suggestion of partial anteriorfusion of the vertebral bodies as well as fusion of the hypertrophied leftfacet joint. There are marginal osteophytes with narrowing of the anteriorsubarachnoid space. There is narrowing of the left C5 neural foramen. At C5-6 level disc is diminutive at there is partial fusion of thevertebral bodies and left facet joint. There is no spinal cord or nerveroot compression. Anterior wedge deformity of the C6. There is mild retrolisthesis of C6over C7. There is magnetic susceptibility artifact at C6-7 level probablydue to surgical anterior fusion . There is disc osteophyte complex withnarrowing of the anterior subarachnoid space and effacement of the spinalcord. There is stenosis of the lateral recesses and C7 neural foramina.There is possible compression of the C7 nerve roots. At C7-T1 level there is arm narrowing of the disc space and marginalosteophytes with some narrowing of the C8 neural foramen on the left.There is no spinal cord compression. Perivertebral soft tissues appear to be unremarkable. There is no focalsignal abnormalities within the spinal cord. CONCLUSIONS: Very limited by motion artifact examination. Abnormalappearance of odontoid process of the C2 with irregular bone marrow signalwith areas of bone marrow edema and thickening of the surrounding softtissues. It could be inflammatory. Possibility of infectious processcannot be ruled out. Correlation with site CT appearance is recommended.Suggestion of partial fusion at C4-5 and C5-6 levels with partial fusionof the bodies as well as some fusion of the left facet joints. Compression deformity of the T6 with large area of magnetic susceptibilityartifact probably from anterior fusion. Effacement of the anterior surface of the spinal cord at C6-7 level. Nofocal signal abnormalities within the cord. Narrowing of the lateralrecesses and neural foramina at several levels as detailed. CT scan of the cervical spine is recommended for better assessment of thebony architecture, especially of the C2. -------- FINAL REPORT -------- Dictated By: Nayeli Winters Dictated Date: 12/12/2024 23:41 ET Assigned Physician: Nayeli Winters Reviewed and Electronically Signed By: Nayeli Winters Signed Date: 12/13/2024 00:00 ET Workstation ID: [id number] Transcribed By: Self Edit Transcribed Date: 12/12/2024 23:41 ET Lewis CARO IMG MRI PROCEDURES Final Result * SCR MAMMO BI INCL CAD (05/06/2019 8:17 AM EST) Anatomical Region Laterality Modality Radiographic Kaye ging 05/05/2018 8:28 AM EST Narrative 05/06/2019 8:28 AM EST This is a summary report. The complete report is available in the patient's medical record. If you cannot access the medical record, please contact the sending organization for a detailed fax or copy. Full field digital screening mammography, reviewed with CAD and compared to previous. The breasts are composed of fatty and fibroglandular tissue. No suspicious mass, architectural distortion or suspicious calcifications are identified. IMPRESSION: : No mammographic evidence of malignancy. BIRADS 1-Negative; N. 5 year breast cancer risk assessment 3.1 % Lifetime breast cancer risk assessment 8.5 % Breast cancer risk category Low (<15%) Procedure Note Mercedes Kerr - 04/22/2022 This is a summary report. The complete report is available in thepatient's medical record. If you cannot access the medical record, pleasecontact the sending organization for a detailed fax or copy. Full field digital screening mammography, reviewed with CAD and comparedto previous. The breasts are composed of fatty and fibroglandular tissue.No suspicious mass, architectural distortion or suspicious calcificationsare identified. IMPRESSION: : No mammographic evidence of malignancy. BIRADS 1-Negative; N. 5 year breast cancer risk assessment 3.1 % Lifetime breast cancer risk assessment 8.5 % Breast cancer risk category Low (<15%) Felisha Courtney MD IMG XR PROCEDURES Final Resul t * Hepatitis C Screening (01/31/2014) Pathologist [facility] Hepatitis C Screening abstracted us Historical Provider HEALTH MAINTENANCE Final Result from Last 3 Months or Most Recently Relevant to Health Maintenance Insurance MEDICARE [facility] Care Teams Reel Hooker Relationship Specialty Start Date End Date Lewis Goyal PA [address] [place] [address] PCP - General Internal Medicine 10/03/20
--- OUTSIDE RECORDS SUMMARY | 2025-03-08 09:40 | XMS_ITS | Encounter Summary ---
Author Organization [facility] Address [address] [place] [address] Care Team Providers Care Spare Fixer Name Role Phone Lewis Goyal Primary Care Provider [phone] Encounter Details Date Type Department Care Team (Late st Contact Info) Description 02/21/2025 Results Follow-Up Adult Medicine [facility] [address] [place], [place] [phone] Elen Sidhu PA [address] [place], [place] Social History Tobacco Use Types Packs/Day Years Used Date Smoking Tobacco: Former Cigarettes 0.5 12 0 05/04/1963 - 05/04/1975 Smokeless Tobacco: Never Alcohol Use Standard Drinks/Week Comments Yes 4.2 [...] Record ed Within the last 3 months, ileana estrada many times did you visit the emergency [...] care for your loved ones. For example, child support agent or elderly care for an older adult? [...] living situation? Unrecognized valu e 02/23/2025 Comments Unknown Sex and Gender Information Value Date Recorded Sex Assigned at Female 12/20/2024 10:25 PM EDT Legal Sex Female 2:03 PM EST Gender Identity Not on file Sexual Orientation Not on file documented as of this encounter Plan of Treatment Upcoming Encounters Date Type Department Care Team (Late st Contact Info) Description 09/01/2025 8:00 AM EDT Office Visit Adult Medicine [facility] [address] [place] [address] Lewis Goyal PA [address] [place] [phone] documented as of this encounter Visit Diagnoses Not on filedocumented in this encounter Additional Health Concerns Assessment Noted Time PHQ-9 Depression Total Score: 0 11/22/19 25 1:51 PM EDT documented as of this encounter Care Teams Spare Fixer Relationship Specialty Start Date End Date Lewis Goyal PA [address] [place] [address] PCP - General Internal Medicine 10/03/20 documented as of this encounter
--- OUTSIDE RECORDS SUMMARY | 2025-03-08 09:40 | XMS_ITS | Encounter Summary ---
Author Organization [facility] Address [address] [place] [address] Care Team Providers Care Associate Sales Name Role Phone Reagan Vazquez MD Unavailable Reagan Vazquez MD Primary Care Provider [phone] Bessy Stephens Unavailable Unavailabl e Reagan Vazquez MD Unavailable [phone] Reagan Vazquez MD Unavailable Reagan Vazquez MD Unavailable [phone] Lian Fuller Unavailable Unavailabl e Source Comments Please be aware that You and/or your organization are solely responsible for the use, security, privacy, and any decisions made with any information you receive from [facility] Reason for Visit * Reason Comments Med Refill Encounter Details Date Type Department Care Team (Late st Contact Info) Description 04/16/2023 Refill [facility] Well 65+ [place] [id number] [address] Reagan Vazquez MD [address] [place], [place] [phone] Anxiety Social History Tobacco Use Types Packs/Day [...] week 01/09/2023 How often do you attend [facility] health system or buddhism services? More than 4 times per year 01/09/2023 Do you belong to any clubs o r organizations such as hinduism groups, unions, fraternal or athletic groups, or [...] Recorded Patient Health Questionnaire-2 Score 0 01/29/2023 [facility] - Occupational Stress [...] place to sleep or slept in a chcf (including now)? 2 01/09/2023 Comments No Sex and Gender Information Value Date Recorded Sex Assigned at Not on file Legal Sex Female 11:34 AM EDT Gender Identity Not on file Sexual Orientation Not on file documented as of this encounter Miscellaneous Notes * Telephone Encounter - Reagan Vazquez MD - 04/16/2023 11:52 AM EST Medication refill approved * Telephone Encounter - Reagan Vazquez MD - 04/16/2023 11:51 AM EST Medication refill approved documented in this encounter [...] documented as of this encounter Care Teams Associate Sales Relationship Specialty Start Date End Date Reagan Vazquez MD [address] [place], [place] [phone] PCP - [facility] [place] Attributed Provider 05/04/21 05/03/23 Reagan Vazquez MD [address] [place], [place] [phone] PCP - General Geriatric Medicine 08/13/23 02/01/25 Reagan Vazquez MD [address] [place], [place] [id number] PCP - [facility] RE[facility] Attributed Provider 05/04/23 11/01/23 Reagan Vazquez MD [address] [place], [place] [phone] PCP - W65+ ACO REACH Attributed Provider 11/02/23 Bessy Stephens Aluminum [employer] Process Operator Family Medicine 11/16/22 Reagan Vazquez MD [address] [place] [address] W65+ Responsible Provider Family Medicine 03/04/24 Lian Fuller Community Relations RepresentativeSurface Boss 09/13/24 09/13/24 documented as of this encounter
--- OUTSIDE RECORDS SUMMARY | 2025-03-08 09:40 | XMS_ITS | Clinical Summary ---
Author Organization [facility] Address [address] [place] [address] Care Team Providers Care Bark Scaler Name Role Phone Unavailable Primary Care Provider Unavailabl e Allergies Active Allergy Reactions Criticality Noted Date Comments Codeine 09/01/2016 Pentazocine Lactate 09/01/2016 Social History Tobacco Use Types Packs/Day Years Used Date Smoking Tobacco: Never Assessed Comments Unknown Sex and Gender Information Value Date Recorded Sex Assigned at Not on file Legal Sex Female 1:46 PM EDT Gender Identity Not on file Sexual Orientation Not on file Last Filed Vital Signs Vital Sign Reading Time Taken Comments Blood Pressure 146/85 09/01/2016 1:06 PM EDT Pulse 90 09/01/2016 1:06 PM EDT Temperature 36.7 C (98.1 F) 09/01/2016 1:06 PM EDT Respiratory Rate 16 09/01/2016 1:06 PM EDT Oxygen Saturation - - Inhaled Oxygen Concentration - - Weight - - Height 154.9 cm (5' 1 ) 09/01/2016 1:06 PM EDT Body Mass Index - - Plan of Treatment Health Maintenance Due Date Last Done Comments Depression Screening & Follow Up 1945 IMM SERIES: MMR Vaccines (1 of 1 - Standard series) 07/10/1946 Social Drivers of Health Assessment 07/10/1948 IMM SERIES: Varicella Vaccin es (1 of 2 - 13+ 2-dose series) 07/10/1960 HEPATITIS C SCREENING 07/10/1965 Weight Management (Adult) 07/10/1965 IMM SERIES: DTAP/TDAP/TD/DTP (1 - Tdap) 07/10/1966 Annual Exam for 40yo+ 1987 Colonoscopy 07/10/1997 IMM SERIES: Zoster (1 of 2) 07/10/1997 Pneumococcal Vaccine 65+ (1 of 1 - PCV) 07/10/1997 DEXA Scan Screening 07/10/2012 Falls Risk Assessment 07/10/2012 GLAUCOMA SCREENING 67+ YR 07/10/2014 Influenza Vaccine (#1) 2024 IMM SERIES: SARS-COV2 and CO VID-19 vaccines ( season) 2025 IMM SERIES: HIB Vaccines Aged Out No longer eligible based on patient's age to complete this topic IMM SERIES: HPV Vaccines Aged Out No longer eligible based on patient's age to complete this topic IMM SERIES: Hepatitis A Vaccine Aged Out No longer eligible based on patient's age to complete this topic IMM SERIES: Hepatitis B Vaccine Aged Out No longer eligible based on patient's age to complete this topic IMM SERIES: Meningococcal ACWY Aged Out No longer eligible based on patient's age to complete this topic IMM SERIES: Meningococcal B Vaccines Aged Out No longer eligible b ased on patient's age to complete this topic IMM SERIES: Polio Vaccines Aged Out N o longer eligible based on patient's age to complete this topic IMM SERIES: Rotavirus Vaccines Aged Out No longer eligible based on patient's age to complete this topic Insurance MEDICARE [facility]
--- OUTSIDE RECORDS SUMMARY | 2025-03-08 09:40 | XMS_ITS | Clinical Summary ---
Author Organization Formerly [facility], [facility] Address [address] [place] [id number] Care Team Providers Care Qualitative Field Project Manager Name Role Phone Bessy Stephens Unavailable Unavailabl e Reagan Vazquez MD Unavailable [phone] Reagan Vazquez MD Unavailable [phone] Allergies Active Allergy Reactions Criticality Noted Date Comments Amlodipine Edema 05/27/2023 Codeine Headache,Vomiting 06/28/2021 Hydrocodone Vomiting 06/28/2021 Lisinopril Cough 05/27/2023 Oxycodone Other,Vomiting 09/11/2023 Pentazocine Vomiting 06/28/2021 Medications Linzess 72 MCG capsuleIndications :Constipation, unspecified constipation type TAKE 1 CAPSULE BY MOUTH EVERY DAY ON AN EMPTY STOMACH 90 capsule 04/16/20 22 Active denosumab (Prolia) 60 MG/ML solution prefilled syringeIndications :Osteoporosis Inject 1 mL (60 mg total) under the skin every 6 (six) months. Active cyclobenzaprine (Flexeril) 10 MG tabletIndications: pain Take 1 tablet (10 mg total) by mouth 1 (one) time each day if needed (pain). 02/01/20 22 Active Vitamin D3 25 MCG (1000 UT) capsuleIndications :supplement Take 1,000 Units by mouth 1 (one) time each day. Active losartan (Cozaar) 100 MG tablet Take 1 tablet (100 mg total) by mouth 1 (one) time each day. 30 tablet 11 01/30/20 23 Active calcipotriene-beta methasone (Taclonex) ointmentIndication s:Fissure in skin of both hands Apply topically 1 (one) time each day. 60 g 3 06/22/19 24 Active traMADol (Ultram) 50 MG tablet Take 1 tablet (50 mg total) by mouth every 12 (twelve) hours if needed. 07/24/19 24 Active atorvastatin (Lipitor) 10 MG tabletIndications: Mixed hyperlipidemia TAKE 1 TABLET BY MOUTH EVERY DAY 90 tablet 3 03/28/20 24 Active clobetasol (Temovate) 0.05 % cream APPLY TO THE AFFECTED AREA TWICE DAILY FOR 2 WEEKS UP TO 1 MONTH NEEDED 04/20/20 24 Active tacrolimus (Protopic) 0.1 % ointment Apply 1 % topically. 04/18/20 24 Active gabapentin (Neurontin) 300 MG capsuleIndications :Cervical radiculopathy Take 1 capsule (300 mg total) by mouth in the morning and 1 capsule (300 mg total) in the evening and 1 capsule (300 mg total) before bedtime. 270 capsule 2 09/22/19 25 Active ibuprofen 800 MG tabletIndications: Cervical radiculopathy Take 1 tablet (800 mg total) by mouth 1 (one) time each day if needed for mild pain. Takes approximately 3 times per week 90 tablet 09/22/19 25 Active LORazepam (Ativan) 0.5 MG tabletIndications: Anxiety TAKE 1 TABLET(0.5 MG) BY MOUTH EVERY DAY NEEDED FOR ANXIETY 30 tablet 09/22/19 25 Active levothyroxine (Synthroid, Levoxyl) 88 MCG tabletIndications: Hypothyroidism, unspecified type TAKE 1 TABLET(88 MCG) BY MOUTH 1 TIME EACH DAY 90 tablet 3 11/16/19 25 Active umeclidinium-vilan terol (Anoro Ellipta) 62.5-25 MCG/ACT aerosol powderIndications: Chronic obstructive pulmonary disease, unspecified COPD type (HCC) Inhale 1 puff 1 (one) time each day. 180 each 1 12/10/19 25 Active Combivent Respimat 20-100 MCG/ACT inhalerIndications :Chronic obstructive pulmonary disease, unspecified COPD type (HCC) INHALE 1 PUFF BY MOUTH FOUR TIMES DAILY 4 g 1 01/18/20 25 Active Active Problems Problem Noted Date Diagnosed Date Pulmonary fibrosis, unspecified 12/19/2024 Fissure in skin of both hands 02/05/2023 Hyperlipidemia 06/12/2022 COPD (chronic obstructive pulmonary disease) Degenerative joint disease 06/28/2021 Essential hypertension 06/28/2021 Nervous disorder 06/28/2021 GERD (gastroesophageal reflux disease) Hip pain 06/28/2021 Hypothyroidism 06/28/2021 Low back pain 06/28/2021 Osteoarthritis 06/28/2021 Pain in knee 06/28/2021 Scoliosis deformity of spine 06/28/2021 Vitamin D deficiency, unspecified 06/30/2019 Hiatal hernia 12/17/2015 Overview (06/12/2022): LARGE BY [facility] DEC 2015 Osteoporosis 10/03/2015 IBS (irritable bowel syndrome) 10/04/2007 Resolved Problems Problem Noted Date Diagnosed Date Resolved Date Chest pain 08/25/2022 08/26/2022 Encounters Date Type Department Care Team Description [facility] [place] [address] [place] [address] Reagan Vazquez MD Chronic obstructive pulmonary disease, unspecified COPD type 01/10/2025 [facility] [place] [address] [place] [address] Jacqueline Calhoun MD XR Hand 1-2 Views Left 12/19/2024 4:55 PM EDT - 12/19/2024 11:59 PM EDT Hospital Encounter [facility] [place] [facility] [address] [place] [phone] Left hand pain Discharge Disposition: Home or Self Care 12/19/2024 4:50 PM EDT - 12/19/2024 4:54 PM EDT Hospital Encounter [facility] [place] [facility] [address] [place] [phone] Left hand pain Discharge Disposition: Home or Self Care 12/19/2024 3:00 PM EDT [facility] [place] [address] [place] [address] Jacqueline Calhoun MD Left hand pain (Primary Dx); Panlobular emphysema; Pulmonary fibrosis, unspecified; Chronic obstructive pulmonary disease, unspecified COPD type 12/19/2024 Telephone [facility] [address] [place] [address] Bessy Lock RN 12/09/2024 Refill [facility] [place] [address] [facility] [place] [address] Reagan Vazquez MD Chronic obstructive pulmonary disease, unspecified COPD type (HCC) (Primary Dx) from Last 3 Months Immunizations Immunization Administration Dates Next Due Covid-19, Mrna, Lnp-s, Pf, 5 0 Mcg/0.5 Ml 01/21/2024 Influenza Vaccine, Quadrival ent, Adjuvanted 01/29/2023 Influenza, High Dose Seasona l, Preservative Free 02/03/2018,01/21/2017 Influenza, High-dose, Quadrivalent 01/27/2022,,01/06/2020 Influenza, Split (INACTIVE HISTORICAL ONLY) 01/01/2014 Influenza, injectable, quadrivalent 02/23/2019 Influenza, injectable, quadr ivalent, preservative free 02/07/2016 Influenza, seasonal, injectable 02/19/20,02/01/2022,01/16/2017,02/16,01/24/2013,01/25/2012,01/09/2011 ,02/02/2010,01/09/2009,03/02/2007,03/05 Influenza, split virus, trivalent, PF 06/16/2019 Influenza, trivalent, adjuvanted 01/21/2024,02/02 Moderna Covid-19 Vaccine, Bivalent 11/08/2022, Moderna SARS-CoV-2 Booster Vaccination ,06/27/2020 Moderna Sars-cov-2 Vaccinati on Abbr...: Moderna Sars* 06/05/2021,03/07/2021,03/04/2021,06/03,05/30/2020,05/04/2020 Novel [id number], preservative-free 04/23/2009 Pneumococcal Conjugate PCV 13 12/04/2014, 015 Pneumococcal Polysaccharide PPV23 2020,01/10/2021,08/09/2020,08/02,09/08/2019,06/16/2019,08/26/2018 ,01/30/2014,05/04/2013,05/23/2008,05/2008 Rsv, Recombinant, Protein Johnston bunit Rsvpref, Adjuvant Reconstf 02/11/2023 TD (adult), 2 Lf tetanus tox oid, preservative free, adsorbed 05/16/2003 Td (adult) 05/16/2003 Tdap 05/18/2020,04/22/2012 Zoster, Recombinant 03/10/2018,12/14/2017 Zoster, Unspecified (INACTIV E 02/27/2017 HISTORICAL ONLY) 03/04/2018 Zoster, live 04/23/2011 Family History Medical History Relation Name Comments Heart attack Father Hypertension Father Cancer Maternal Grandmother Mary Oliver Cancer Mother April Be Cancer Sister Melissa Macedo Stroke Sister Melissa Macedo Relation Name Status Comments Father Maternal Grandmother Mary Oliver Mother April Be Sister Melissa Macedo Social History Tobacco Use Types Packs/Day Years Used Date Smoking Tobacco: Former Cigarettes 0.5 10 0 07/10/1966 - 06/17/1976 Passive Smoke Exposure: Past Smokeless Tobacco: Never Tobacco Cessation:Counseling Given: No Alcohol Use Standard Drinks/Week Comments Yes 4 [...] How often do you attend chur or yazidi services? More than 4 times per year 02/18/2024 Do you belong to any clubs o r organizations such as catholic groups, unions, fraternal or athletic groups, or [...] Recorded Patient Health Questionnaire-2 Score 0 02/18/2024 [facility] [place] [facility] Occupat ional Health - Occupational Stress [...] place to sleep or slept in a fdc (including now)? 2 01/09/2023 [facility] Food Security Answer Date Recorded Within the past 12 months, t he food you bought just didn't last and you didn't have money to get more. 3 02/18/2024 Within the past 12 months, y ou worried that your food would run out before you got money to buy more. 3 02/18/2024 [facility] Transportation Needs Answer Date Re corded In the past 12 months, has l ack of reliable transportation kept you from medical appointments, meetings, work or from getting things needed for daily living? No 02/18/2024 [facility] Housing Answer Date Recorded What is your living situation today? I have a [facility] [place] place to live 02/18/[address] you li ve. Do you have problems with any of the following? None of the above 02/18/2024 [facility] Safety Answer Date Recorded How often [...] scream or curse at you? 1 02/18/2024 [facility] Utilities Answer Date Recorded In the past 12 months has [employer] electric, gas, oil, or water company threatened to shut off services in your home? No 02/18/2024 Comments No Sex and Gender Information Value Date Recorded Sex Assigned at Not on file Legal Sex Female 11:34 AM EDT Gender Identity Not on file Sexual Orientation Not on file Last Filed Vital Signs Vital Sign Reading Time Taken Comments Blood Pressure 134/72 12/19/2024 3:02 PM EDT Pulse 79 12/19/2024 3:02 PM EDT Temperature 36.9 C (98.4 F) 12/19/2024 3:02 PM EDT Respiratory Rate 16 05/18/2024 11:3 1 AM EST Oxygen Saturation 98% 12/19/2024 3:02 PM EDT Inhaled Oxygen Concentration - - Weight 62.5 kg (137 lb 12.8 oz) 12/19/2024 3:02 PM EDT Height 152.4 cm (5') 12/19/2024 3:02 PM EDT Body Mass Index 26.91 12/19/2024 3:02 PM EDT Plan of Treatment Health Maintenance Due Date Last Done Comments COVID-19 Vaccine ( season) 2025 01/21/2024, 11/08/2022, 02/15/2022, Additional history exists Influenza Vaccine (#1) 2025 , 02/18/2023, 01/29/2023, Additional history exists TSH Level 02/15/2025 02/16/2024, 02/01, 09/04/2023, Additional history exists Depression Screening 02/17/2025 02/18/2024 Medicare Annual Wellness (AWV) 02/17/2025 02/18/2024, 01/29/2023, 01/27/2022, Additional history exists Bone Density Scan 07/14/2026 07/14/2024, , 06/02/2022, Additional history exists Lipid Panel 02/15/2029 02/16/2024, 02/01, 09/04/2023, Additional history exists DTaP/Tdap/Td Vaccines (3 - Td or Tdap) 05/18/2030 05/18/2020, 04/22/2012, 05/16/2003, Additional history exists Colonoscopy Discontinued 02/26/2018 Colorectal Cancer Screening Discontinued Zoster Vaccines Completed 03/10/2018, 05/2017, 12/14/2017, Additional history exists Pneumococcal Vaccine: 50+ Years Completed 02/07/2021, 02/07/2021, 01/10/2021, Additional history exists Respiratory Syncytial Virus (RSV) 60 years and older and/or patients Completed 02/11/2023 Mammogram Discontinued 07/01/2024, 07/02, 06/29/2023, Additional history exists CT Colonography Discontinued Cologuard Discontinued FIT Discontinued FOBT Discontinued HPV Vaccines Aged Out No longer eligi [...] patient's age to complete this topic Meningococcal Vaccine Aged Out No natasha christi eligible based on patient's age to complete this topic Respiratory Syncytial Virus (RSV) <20 months Aged Out No longer eligible based on patient's age to complete this topic Sigmoidoscopy Discontinued Medical Devices Implanted Type Area Principal Gifts Officer Device Identifier Shelf Expiration Date Model / Serial / Lot Lens Lens Bilateral: Eye Ortho Implants Ortho Implants Bilateral: Hip Fibers Bn Nmp Orion Frzdr Lng Sm - Sn/A - [id number] Implanted:Qty: 1 on 08/21/2022 by Cherelle Alvarez MD at [facility] Ortho Implants N/A: Spine Cervical [employer] 11/01/2026 [id number] / N/A / 0000 Spacer Spn Acss Acid-Etched Ti [id number] 7deg Nstrl - Sn/A - [id number] Implanted:Qty: 1 on 08/21/2022 by Cherelle Alvarez MD at [facility] Spine Implants N/A: Spine Cervical [facility] 08/21/2022 [id number] / N/A / 0000 Plate Spk Zero Acss 7mm - Sn/A - [id number] Implanted:Qty: 1 on 08/21/2022 by Cherelle Alvarez MD at [facility] Spine Implants N/A: Spine Cervical [facility] 08/21/2022 [id number] / N/A / 0000 Screw Vari Slfdrll Acss 3.5x14mm - Sn/A - [id number] Implanted:Qty: 2 on 08/21/2022 by Cherelle Alvarez MD at [facility] Spine Implants N/A: Spine Cervical [facility] 08/21/2022 [id number] / N/A / Procedures Procedure Name Priority Date/Time Associated Diagnosis Comments XR WRIST 2 VIEWS LEFT Routine 12/19/2024 5:06 PM EDT Left hand pain XR HAND 1-2 VIEWS LEFT Routine 5:06 PM EDT Left hand pain DEXA BONE DENSITY W TBS Routine 07/14/2024 8:51 AM EDT Post-menopausal BI MAMMOGRAM SCREENING TOMOSYNTHESIS BILATERAL Routine 07/01/2024 8:00 AM EST Encounter for screening mammogram for malignant neoplasm of breast LIPID PANEL W DIRECT LDL Routine 02/16/2024 8:36 AM EDT Essential hypertension, malignant Mixed hyperlipidemia 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 Created by: Aaron Cotton Signed by: Aaron Cotton Signed on: 12/22/2024 9:54 EDT Location: [place] [address] Narrative 12/22/2024 9:54 AM EDT EXAM: XR WRIST 2 VIEWS LEFT, XR HAND 1-2 VIEWS LEFT INDICATION: left wrist pain COMPARISON: None FINDINGS: BONES: No acute fracture. Demineralized. Intraosseous ganglion within the lunate. JOINT SPACES: Severe first CMC and triscaphe osteoarthritis. Additional overall mild scattered interphalangeal joint degeneration. SOFT TISSUES: Unremarkable. Procedure Note Aaron Cotton MD - 12/22/2024 EXAM: XR WRIST 2 VIEWS LEFT, XR HAND 1-2 VIEWS LEFT INDICATION: left wrist pain COMPARISON: None FINDINGS: BONES: No acute fracture. Demineralized. Intraosseous ganglion within thelunate. JOINT SPACES: Severe first CMC and triscaphe osteoarthritis. Additionaloverall mild scattered interphalangeal joint degeneration. SOFT TISSUES: Unremarkable. IMPRESSION: Degenerative changes without acute osseous abnormality. Created by: Aaron Cotton Signed by: Aaron Cotton Signed on: 12/22/2024 9:54 EDT Location: [place] [address] us Jacqueline Calhoun MD IMG XR PROCEDURES Final Resu lt * XR Hand 1-2 Views Left (12/19/2024 5:06 PM EDT) Anatomical Region Laterality Modality Upper Extremities, Hand Left Digital Radiography Impressions 12/22/2024 9:54 AM EDT Degenerative changes without acute osseous abnormality. Created by: Aaron Cotton Signed by: Aaron Cotton Signed on: 12/22/2024 9:54 EDT Location: [place] [address] Narrative 12/22/2024 9:54 AM EDT EXAM: XR WRIST 2 VIEWS LEFT, XR HAND 1-2 VIEWS LEFT INDICATION: left wrist pain COMPARISON: None FINDINGS: BONES: No acute fracture. Demineralized. Intraosseous ganglion within the lunate. JOINT SPACES: Severe first CMC and triscaphe osteoarthritis. Additional overall mild scattered interphalangeal joint degeneration. SOFT TISSUES: Unremarkable. Procedure Note Aaron Cotton MD - 12/22/2024 EXAM: XR WRIST 2 VIEWS LEFT, XR HAND 1-2 VIEWS LEFT INDICATION: left wrist pain COMPARISON: None FINDINGS: BONES: No acute fracture. Demineralized. Intraosseous ganglion within thelunate. JOINT SPACES: Severe first CMC and triscaphe osteoarthritis. Additionaloverall mild scattered interphalangeal joint degeneration. SOFT TISSUES: Unremarkable. IMPRESSION: Degenerative changes without acute osseous abnormality. Created by: Aaron Cotton Signed by: Aaron Cotton Signed on: 12/22/2024 9:54 EDT Location: [place] [address] [place] Jacqueline Calhoun MD IMG XR PROCEDURES Final Resu lt * DEXA Bone Density Axial Skeleton W TBS (07/14/2024 8:51 AM EDT) Anatomical Region Laterality Modality Body N/A Digital Radiogra phy Impressions 07/14/2024 8:54 AM EDT Normal bone mineral density lumbar spine. NOTE: Values are compared with young normal subjects ( T-score) A) Normal-> -1 or higher. B) Osteopenia-> between -1 and -2.5. C) Osteoporosis-> - 2.5 or lower. Created by: Liang Mckenzie MD Signed by: Liang Mckenzie MD Signed on: 07/14/2024 8:54 EDT Location: [id number] Narrative 07/14/2024 8:54 AM EDT STUDY: Dual-energy x-ray absorptiometry ( DEXA ) INDICATION: POSTMENOPAUSAL SYMPTOMS COMPARISON: 06/03/2022 Bone mineral density exam performed. FINDINGS: There is a lumbar scoliosis. The density of L1-L4 is 1.408 g/cm2 which is a T score of 1.7 which is normal and increased by 1.7%. Bilateral hips could not be assessed due to prostheses in place. Procedure Note Liang Mckenzie MD - 07/14/2024 STUDY: Dual-energy x-ray absorptiometry ( DEXA ) INDICATION: POSTMENOPAUSAL SYMPTOMS COMPARISON: 06/03/2022 Bone mineral density exam performed. FINDINGS: There is a lumbar scoliosis. The density of L1-L4 is 1.408 g/cm2 which crow T score of 1.7 which is normal and increased by 1.7%. Bilateral hipscould not be assessed due to prostheses in place. IMPRESSION: Normal bone mineral density lumbar spine. NOTE: Values are compared with young normal subjects ( T-score) A) Normal-> -1 or higher. B) Osteopenia-> between -1 and -2.5. C) Osteoporosis-> - 2.5 or lower. Created by: Liang Mckenzie MD Signed by: Liang Mckenzie MD Signed on: 07/14/2024 8:54 EDT Location: [facility] Reagan Vazquez MD IMG DXA PROCEDURES Final Re sult * BI Mammogram Screening W Tomosynthesis Bilateral (07/01/2024 8:00 AM EST) Anatomical Region Laterality Modality Breast Bilateral Mammography Impressions 07/02/2024 2:58 PM EST No significant change in the mammographic appearance of the breasts and no mammographic evidence of malignancy. The patient has a lifetime risk for breast cancer of 6.4% using the DANNY (Tyrer-Cuzick) breast cancer risk evaluation tool (Version 8). The [place] [employer] recommends consideration of high risk bilateral screening breast MRI in addition to yearly mammography in patients with a life time risk greater than 20%. RECOMMENDATION: Routine screening mammography in one year if patient remains asymptomatic. BI-RADS Category 1: Negative. BREAST DENSITY: BI-RADS B: Scattered areas of fibroglandular density. Created by: Jb Painter Signed by: Jb Painter Signed on: 07/02/2024 14:58 EST Location: [id number] Narrative 07/02/2024 2:58 PM EST EXAM: Routine Screening Digital Mammography with Tomosynthesis,bilateral, with CAD. DATE OF EXAM: 07/01/2024 7:52 EST INDICATION: Routine screening. Family history of breast cancer in sister at the age of 65. COMPARISON: Prior mammogram studies performed on 07/15/2023, 06/29/2023, and 06/03/2022. TECHNIQUE: Digital craniocaudal and mediolateral oblique images of both breasts were obtained including digital breast tomosynthesis. CAD (computer-aided detection) was used in reviewing the images. FINDINGS: There are no suspicious masses, asymmetries, microcalcifications or other worrisome findings within either breast. There is no mammographic evidence of suspicious axillary lymphadenopathy. Procedure Note Jb Painter MD - 07/02/2024 EXAM: Routine Screening Digital Mammography withTomosynthesis,bilateral, with CAD. DATE OF EXAM: 07/01/2024 7:52 EST INDICATION: Routine screening. Family history of breast cancer in sisterat the age of 65. COMPARISON: Prior mammogram studies performed on 07/15/2023, 06/29/2023,and 06/03/2022. TECHNIQUE: Digital craniocaudal and mediolateral oblique images of bothbreasts were obtained including digital breast tomosynthesis. CAD(computer-aided detection) was used in reviewing the images. FINDINGS: There are no suspicious masses, asymmetries, microcalcifications or otherworrisome findings within either breast. There is no mammographicevidence of suspicious axillary lymphadenopathy. IMPRESSION: No significant change in the mammographic appearance of the breasts andno mammographic evidence of malignancy. The patient has a lifetime risk for breast cancer of 6.4% using the DANNY(Tyrer-Cuzick) breast cancer risk evaluation tool (Version 8). TheAmerican Cancer Society recommends consideration of high risk bilateralscreening breast MRI in addition to yearly mammography in patients with alife time risk greater than 20%. RECOMMENDATION: Routine screening mammography in one year if patient remainsasymptomatic. BI-RADS Category 1: Negative. BREAST DENSITY: BI-RADS B: Scattered areas of fibroglandular density. Created by: Jb Painter Signed by: Jb Painter Signed on: 07/02/2024 14:58 EST Location: [id number] us Reagan Vazquez MD IMG BI PROCEDURES Final Res ult * (ABNORMAL) Lipid Panel with Direct LDL (02/16/2024 8:36 AM EDT) Triglycerides 73 0 - 200 mg/dL 02/16/2024 9:12 AM EDT [facility] Cholesterol, Total 135.00 0.00 - 200.00 mg/dL 02/16/2024 9:12 AM EDT [facility] HDL Cholesterol 62.60(L) >=65.00 mg/dL 02/16/2024 9:12 AM EDT [facility] VLDL, Calculated 15 mg/dL 02/16/20 9:12 AM EDT [facility] Non-HDL Cholesterol 72 mg/dL 02/16/2024 9:12 AM EDT [facility] LDL Cholesterol, Direct 65.3 0.0 - 100.0 mg/dL 02/16/2024 9:12 AM EDT [facility] Chol/HDL Ratio 2.2 02/16/2024 9:12 AM EDT [facility] [place] LDL/HDL Ratio 1.0 02/16/2024 9:12 AM EDT COUNT INCLUDES THE [facility] [place] Blood Venous blood specimen / Unknown Venipuncture / Unknown 02/16/2024 8:36 AM EDT 02/16/2024 8:47 AM EDT us Reagan Vazquez MD LAB BLOOD ORDERABLES Final Result COUNT INCLUDES THE [facility] [place] [address] [place] [address], * TSH (02/16/2024 8:36 AM EDT) TSH 3.920 0.270 - 4.200 u[IU]/mL 02/16/2024 9:30 AM EDT COUNT INCLUDES THE [facility] [place] Blood Venous blood specimen / Unknown Venipuncture / Unknown 02/16/2024 8:36 AM EDT 02/16/2024 8:47 AM EDT Reagan Vazquez MD LAB BLOOD ORDERABLES Final Result COUNT INCLUDES THE [facility] [place] [address] [place] [address], from Last 3 Months or Most Recently Relevant to Health Maintenance Insurance MEDICARE [facility] Advance Directives Documents on File Type Date Recorded Patient Regional Director Expl anation Living Will 06/25/2023 10:03 AM LIVING [place] AND HEALTH CARE SURROGATE * Full Code (Latest Code Status on File) Date Activated Date Inactivated Comments 08/25/2022 10:22 PM 08/26/2022 7:59 PM * Full Code Date Activated Date Inactivated Comments 08/21/2022 6:23 AM 08/21/2022 4:02 PM Care Teams Qualitative Field Project Manager Relationship Specialty Start Date End Date Reagan Vazquez MD [address] [place] [address] PCP - W65+ ACO REACH Attributed Provider 11/02/23 Bessy Stephens Foreign Exchange Trader Family Medicine 11/16/22 Reagan Vazquez MD [address] [place] [address] W65+ Responsible Provider [facility] 03/04/24
--- OUTSIDE RECORDS SUMMARY | 2025-03-08 09:40 | XMS_ITS | Encounter Summary ---
Author Organization [facility] Address [address] [place] [address] Care Team Providers Care Rope Walker Name Role Phone Reagan Vazquez MD Primary Care Provider [phone] Bessy Stephens Unavailable Unavailabl e Reagan Vazquez MD Unavailable Reagan Vazquez MD Unavailable [phone] Source Comments Please be aware that You and/or your organization are solely responsible for the use, security, privacy, and any decisions made with any information you receive from [facility] Encounter Details Date Type Department Care Team (Late st Contact Info) Description 01/10/2025 Results Follow-Up [facility] [address] [place] [address] [place] [address] Jacqueline Calhoun MD [address] [place] [address] XR Hand 1-2 Views Left Social History Tobacco Use Types Packs/Day Years [...] week 02/18/2024 How often do you attend [facility] or spiritism services? More than 4 times per year 02/18/2024 Do you belong to any clubs o r organizations such as scientologist groups, unions, fraternal or athletic groups, or [...] Recorded Patient Health Questionnaire-2 Score 0 02/18/2024 [facility] [place] of Occupat ional Health - Occupational Stress [...] place to sleep or slept in a senior care (including now)? 2 01/09/2023 [facility] Food Security Answer Date Recorded Within the past 12 months, t he food you bought just didn't last and you didn't have money to get more. 3 02/18/2024 Within the past 12 months, y ou worried that your food would run out before you got money to buy more. 3 02/18/2024 [facility] Transportation Needs Answer Date Re corded In the past 12 months, has l ack of reliable transportation kept you from medical appointments, meetings, work or from getting things needed for daily living? No 02/18/2024 [facility] Housing Answer Date Recorded What is your living situation today? I have a [facility] [place] place to live 02/18/[address] you li ve. Do you have problems with any of the following? None of the above 02/18/2024 [facility] Safety Answer Date Recorded How often [...] scream or curse at you? 1 02/18/2024 [facility] Utilities Answer Date Recorded In the past 12 months has [employer] electric, gas, oil, or water company threatened to shut off services in your home? No 02/18/2024 Comments No Sex and Gender Information Value Date Recorded Sex Assigned at Not on file Legal Sex Female 11:34 AM EDT Gender Identity Not on file Sexual Orientation Not on file documented as of this encounter Miscellaneous Notes * Telephone Encounter - Keiko Castillo LPN - 02/02/2025 12:27 PM EDT Patients hand is doing . She stated her hand pain is much better. She appreciates all the care she has received from our providers. The patient has moved permanently to [place] and has established care with another provider. * Telephone Encounter - Keiko Castillo LPN - 02/02/2025 12:27 PM EDT ----- Message from Jacqueline Calhoun MD sent at 01/10/2025 7:29 AM EDT ----- Please find out how she is doing with her hand pain.Her x-ray just showed arthritis no fracture. ----- Message ----- From: Interface, Incoming Ancillary Results And Orders - Imaging Results To Radiant/Cupid - Master Sent: 12/22/2024 9:57 AM EDT To: Jacqueline Calhoun MD * Telephone Encounter - Keiko Castillo LPN - 02/01/2025 3:55 PM EDT Left message for patient to update the office if she is still having pain in her hand. * Telephone Encounter - Keiko Castillo LPN - 02/01/2025 3:55 PM EDT ----- Message from Jacqueline Calhoun MD sent at 01/10/2025 7:29 AM EDT ----- Please find out how she is doing with her hand pain.Her x-ray just showed arthritis no fracture. ----- Message ----- From: Interface, Incoming Ancillary Results And Orders - Imaging Results To Radiant/Cupid - Master Sent: 12/22/2024 9:57 AM EDT To: Jacqueline Calhoun MD documented in this encounter Plan of Treatment Not on file documented as of this encounter Visit Diagnoses Not on filedocumented in this encounter Additional Health Concerns Assessment Noted Time PHQ-9 Depression Total Score: 2 06/06/19 23 12:46 PM EST A fall risk assessment has been complete d for the patient 02/18/2024 4:18 PM EDT documented as of this encounter Care Teams Rope Walker Relationship Specialty Start Date End Date Reagan Vazquez MD PCP - General Geriatric Medicine 08/13/23 02/01/25 Reagan Vazquez MD [address] [place] [address] PCP - W65+ ACO REACH Attributed Provider 11/02/23 Bessy Stephens Adult Live In Caregiver Family Medicine 11/16/22 Reagan Vazquez MD W54+ Responsible Provider Family Medicine 03/04/24 documented as of this encounter
--- OUTSIDE RECORDS SUMMARY | 2025-03-08 09:40 | XMS_ITS ---
[facility] Organization [facility] Address [address] [place] [address] Care Team Providers Care National Sales Executive Name Role Phone Bessy Stephens Unavailable Unavailabl e Reagan Vazquez MD Unavailable [phone] Reagan Vazquez MD Unavailable [phone] Care Advocacy Status:Ongoing (Active) Start date:05/26/2020 Enrollment date:05/26/2020 Case Team Name Relationship Phone Sandy Dimas(Responsible Staff) System Operator Continued Care and Services Coordination
== END 2025-03-08 09:53 | disposition home or self-care (01) ==
LOC: HO.HPS 09:03
PROVIDERS: PCP Physician Assistant Medical; Referring Provider Physician Assistant Medical; Visit Provider Hospitalist
DX: J43.2 Centrilobular emphysema (principal); J96.11 Chronic respiratory failure with hypoxia; J84.10 Pulmonary fibrosis, unspecified; R13.10 Dysphagia, unspecified; J39.8 Other specified diseases of upper respiratory tract
CPT/HCPCS: 99205

== ENCOUNTER → 2025-03-08 09:03 | Outpatient (BNVA) | payer MEDICARE, SELFPAY | PROVIDERS: PCP Physician Assistant Medical; Referring Provider Physician Assistant Medical; Visit Provider Hospitalist | DX: J43.2 Centrilobular emphysema (principal); Z87.891 Personal history of nicotine dependence; J96.11 Chronic respiratory failure with hypoxia; R13.10 Dysphagia, unspecified; J39.8 Other specified diseases of upper respiratory tract | CPT/HCPCS: 99202 ==